=== PATIENT | male | born 1965 | race Two or more races ===

== ENCOUNTER 2019-06-23 10:18 | Emergency (ER) | payer MEDICAID ==
[~2019-06-23] VITALS: Ht 167.6 cm; Wt 108.9 kg
[~2019-06-23 10:18] MED LIST: ALLOPOW4; LISI10TA6
[2019-06-23 11:32] LABS: Basophils # (auto) 0 uL; Basophils % (auto) 0.8 % (0.0-2.0); Eosinophils # (auto) 0.1 uL; Eosinophils % (auto) 2.4 % (0.0-7.0); Hematocrit 46.1 % (41.0-53.0); Hemoglobin 15.5 g/dL (13.5-17.5); Lymphocytes # (auto) 1.1 uL; Lymphocytes % (auto) 18.4 % (10.0-50.0); Mean Corpuscular Hemoglobin 31.6 pg (28.0-32.0); Mean Corpuscular Hgb Conc. 33.6 g/dL (32.0-36.0); Monocytes # (auto) 0.5 uL; Monocytes % (auto) 8.1 % (0.0-12.0); Neutrophils # (auto) 4.2 uL; Neutrophils % (auto) 70.3 % (37.0-80.0); Platelet Count (auto) 347 10^3/uL (140-450); Red Cell Distribution Width 14.2 % (11.8-14.3)
[2019-06-23 11:49] LABS: Albumin 3.1 g/dL (3.4-5.0); Anion Gap 6 (5-15); Blood Urea Nitrogen 29 mg/dL (7-18); Calcium 9.1 mg/dL (8.5-10.1); Carbon Dioxide 23 mmol/L (21-32); Chloride 109 mmol/L (98-107); Glucose 90 mg/dL (74-106); Potassium 4.6 mmol/L (3.5-5.1); Sodium 138 mmol/L (136-145)
[2019-06-23 11:54] LABS: Alanine Aminotransferase 20 U/L (16-61); Alkaline Phosphatase 93 U/L (45-117); Aspartate Aminotransferase 13 U/L (15-37); BUN/Creatinine Ratio 18.6; Bilirubin, Total 0.5 mg/dL (0.2-1.0); GFR African American 60 mL/min; GFR Non-African American 50 mL/min; Total Protein 8.7 g/dL (6.4-8.2)
[2019-06-23] MEDS ORDERED: KETOROLAC TROMETH 30 MG/ML 1ML VIAL IV ONE (14:00)
[2019-06-23] MEDS ORDERED: KETOROLAC TROMETH 15 mg/ml 1ML VL IV ONE (14:45)
[2019-06-23 16:00] VITALS: BP 118/79
== END 2019-06-23 17:24 | disposition home or self-care (01) ==
LOC: ER 10:18
DX: M10.062 Idiopathic gout, left knee (principal); E79.0 Hyperuricemia without signs of inflammatory arthritis and tophaceous disease; F17.210 Nicotine dependence, cigarettes, uncomplicated; F12.10 Cannabis abuse, uncomplicated; I11.0 Hypertensive heart disease with heart failure; I50.9 Heart failure, unspecified; J44.9 Chronic obstructive pulmonary disease, unspecified; Z86.73 Personal history of transient ischemic attack (TIA), and cerebral infarction without residual deficits; Z88.1 Allergy status to other antibiotic agents
CPT/HCPCS: 36415; 71046; 73562; 80053; 83880; 84484; 84550; 85025; 96374; 99284; J1885

== ENCOUNTER 2019-11-01 15:05 | Emergency (ER) | payer MEDICAID ==
[~2019-11-01] VITALS: Ht 167.6 cm; Wt 122.5 kg
[2019-11-01] MEDS ORDERED: SODIUM CHLORIDE 0.9% 1,000 ML IV ONE (15:20)
[2019-11-01] MEDS ORDERED: cefTRIAXone 1GM/50ML D5W 50 ML IV ONE (15:30)
[2019-11-01] MEDS ORDERED: ZINC SULFATE 220mg CAP or TAB PO ONE (15:30)
[2019-11-01] MEDS ORDERED: ASCORBIC ACID 500 MG TAB PO ONE (15:30)
[2019-11-01] MEDS ORDERED: AZITHROMYCIN 500MG/ 250ML 250 ML IV ONE (15:30)
[2019-11-01 16:26] LABS: Basophils # (auto) 0.1 10 ^3/uL (0-0.2); Basophils % (auto) 1.2 % (0.0-2.0); Eosinophils # (auto) 1.5 10 ^3/uL (0-0.8); Lymphocytes # (auto) 0.9 10 ^3/uL (0.4-5.4); Mean Corpuscular Hemoglobin 30.9 pg (28.0-32.0); Mean Corpuscular Hgb Conc. 32.7 g/dL (32.0-36.0); Neutrophils # (auto) 7.5 10 ^3/uL (1.6-8.6)
[2019-11-01 16:28] LABS: Eosinophils % (auto) 13.3 % (0.0-7.0); Hematocrit 38.2 % (41.0-53.0); Hemoglobin 12.5 g/dL (13.5-17.5); Mean Corpuscular Volume 94.3 fL (80.0-100.0); Monocytes # (auto) 1.1 10 ^3/uL (0-1.3); Neutrophils % (auto) 67.5 % (37.0-80.0); Nucleated Red Blood Cells % 0.1 %; Platelet Count (auto) 530 10^3/uL (140-450); Red Blood Cells 4.05 10^6/uL (4.5-5.90); Red Cell Distribution Width 15.3 % (11.8-14.3); White Blood Cell 11.2 10^3/uL (4.4-10.8)
[2019-11-01] MEDS ORDERED: ACETAMINOPHEN 500 MG TAB PO ONE (16:30)
[2019-11-01 16:43] LABS: INR 1.09 (0.9-1.15); Partial Thromboplastin Time 29.2 sec (23.64-32.05)
[2019-11-01 16:44] LABS: Albumin 2.5 g/dL (3.4-5.0); Anion Gap 6 (5-15); Blood Urea Nitrogen 19 mg/dL (7-18); Calcium 7.9 mg/dL (8.5-10.1); Carbon Dioxide 22 mmol/L (21-32); Chloride 107 mmol/L (98-107); Glucose 128 mg/dL (74-106); Potassium 3.8 mmol/L (3.5-5.1); Sodium 135 mmol/L (136-145)
[2019-11-01 16:49] LABS: Alanine Aminotransferase 29 U/L (16-61); Alkaline Phosphatase 85 U/L (45-117); Aspartate Aminotransferase 16 U/L (15-37); BUN/Creatinine Ratio 10.8; Bilirubin, Total 0.4 mg/dL (0.2-1.0); GFR African American 52 mL/min; GFR Non-African American 43 mL/min; Total Protein 7.9 g/dL (6.4-8.2)
[2019-11-01 18:35] VITALS: BP 135/65
== END 2019-11-01 18:40 | disposition home or self-care (01) ==
LOC: ER 15:05
DX: E66.01 Morbid (severe) obesity due to excess calories (principal); I11.0 Hypertensive heart disease with heart failure; I50.42 Chronic combined systolic (congestive) and diastolic (congestive) heart failure; R50.9 Fever, unspecified; F17.210 Nicotine dependence, cigarettes, uncomplicated; F12.10 Cannabis abuse, uncomplicated; J44.9 Chronic obstructive pulmonary disease, unspecified; Z86.73 Personal history of transient ischemic attack (TIA), and cerebral infarction without residual deficits; Z20.828 Contact with and (suspected) exposure to other viral communicable diseases
CPT/HCPCS: 36415; 80053; 83880; 84484; 85025; 85610; 85730; 87070; 87804; 87880; 96365; 96366; 96368; 99284; J0456; J0696; J7030; U0003

== ENCOUNTER 2020-03-11 17:19 | Emergency (ER) | payer MEDICAID ==
[~2020-03-11] VITALS: Ht 167.6 cm; Wt 108.9 kg
[~2020-03-11 17:19] MED LIST changes: +LISI-648; -LISI10TA6
[2020-03-11] MEDS ORDERED: cefTRIAXone W LIDOCAINE 1 GM IM IM ONE (17:45)
[2020-03-11] MEDS ORDERED: CLINDAMYCIN 600 MG/4 ML VL IM ONE (17:45)
[2020-03-11] MEDS ORDERED: LIDOCAINE 2% (LOCAL ANESTH.) PF 5ml SDV ONE (17:49)
[2020-03-11] MEDS ORDERED: cefTRIAXone SOD 1,000 MG VL ONE (17:50)
[2020-03-11] MEDS ORDERED: LIDOCAINE HCL 2 % INJ 2ML MPF NEB ONE (18:00)
== END 2020-03-11 18:17 | disposition home or self-care (01) ==
LOC: ER 17:19
DX: L03.116 Cellulitis of left lower limb (principal); E66.01 Morbid (severe) obesity due to excess calories; I11.0 Hypertensive heart disease with heart failure; I50.9 Heart failure, unspecified; J44.9 Chronic obstructive pulmonary disease, unspecified; F17.210 Nicotine dependence, cigarettes, uncomplicated; Z88.1 Allergy status to other antibiotic agents; Z68.38 Body mass index [BMI] 38.0-38.9, adult; Z79.899 Other long term (current) drug therapy; Z86.73 Personal history of transient ischemic attack (TIA), and cerebral infarction without residual deficits; Z59.0 Homelessness
CPT/HCPCS: 96372; 99284; J0696; J2001

== ENCOUNTER 2020-06-04 10:47 | Inpatient (IN) | payer MEDICAID ==
[~2020-06-04] VITALS: Ht 167.6 cm; Wt 128.0 kg
[2020-06-04 11:44] LABS: Basophils # (auto) 0.1 10 ^3/uL (0-0.2); Basophils % (auto) 0.6 % (0.0-2.0); Eosinophils # (auto) 0.4 10 ^3/uL (0-0.8); Eosinophils % (auto) 4.4 % (0.0-7.0); Hematocrit 39.7 % (41.0-53.0); Hemoglobin 13.3 g/dL (13.5-17.5); Lymphocytes # (auto) 1.1 10 ^3/uL (0.4-5.4); Lymphocytes % (auto) 12.6 % (10.0-50.0); Mean Corpuscular Hemoglobin 31.4 pg (28.0-32.0); Mean Corpuscular Hgb Conc. 33.5 g/dL (32.0-36.0); Mean Corpuscular Volume 93.9 fL (80.0-100.0); Monocytes # (auto) 0.5 10 ^3/uL (0-1.3); Monocytes % (auto) 5.4 % (0.0-12.0); Neutrophils # (auto) 6.9 10 ^3/uL (1.6-8.6); Platelet Count (auto) 410 10^3/uL (140-450); Red Blood Cells 4.23 10^6/uL (4.5-5.90); Red Cell Distribution Width 15.3 % (11.8-14.3)
[2020-06-04 12:03] LABS: Albumin 2.8 g/dL (3.4-5.0); Calcium 8.5 mg/dL (8.5-10.1); Potassium 4.1 mmol/L (3.5-5.1)
[2020-06-04 12:06] LABS: BUN/Creatinine Ratio 12.8; Bilirubin, Total 0.4 mg/dL (0.2-1.0); Total Protein 8.4 g/dL (6.4-8.2)
[2020-06-04 12:14] LABS: INR 0.98 (0.9-1.15); Partial Thromboplastin Time 27.3 sec (23.0-31.2)
[2020-06-04] MEDS ORDERED: cefTRIAXone 1GM/50ML D5W 50 ML IV ONE (12:30)
[2020-06-04] MEDS ORDERED: VANCOMYCIN PER PHARMACY 0 MG IV SCH (15:15)
[2020-06-04] MEDS ORDERED: NICOTINE 21MG/24 HR TOPICAL PATCH TD ONE (15:15)
[2020-06-04] MEDS ORDERED: hydrALAZINE HCL 20 MG/ML VL IV PRN (15:15)
[2020-06-04] MEDS ORDERED: LORazepam 2MG/ML-1ML VIAL IV PRN (15:15)
[2020-06-04] MEDS ORDERED: NIFE20CA PO (16:00)
[2020-06-04] MEDS: FOLIC ACID 1 MG, MULTIPLE VITAMIN 10 ML, MAGNESIUM SULF SDV 50% 8 MEQ, THIAMINE INJ 100... INJ SCH ×5 (17:20)
[2020-06-04] MEDS ORDERED: diphenhdrAMINE HCL 25 MG CAP PO PRN (17:30)
[2020-06-04] MEDS: VANCOMYCIN 1GM/250ML 250 ML IV SCH (19:09)
[2020-06-04] MEDS: ONDANSETRON HCL 4 MG/2 ML VIAL IV PRN (20:28)
[2020-06-04] MEDS: MORPHINE SULF INJ 2 MG/ML SYRINGE 1ML IV PRN (20:28)
[2020-06-04] MEDS: CARVEDILOL 3.125 MG TAB PO SCH (21:55)
[2020-06-04] MEDS ORDERED: ATORVASTATIN 20 MG TAB PO SCH (22:00)
[2020-06-04] MEDS: HYDROcodone-ACET 5/325MG TAB PO PRN (23:00)
[2020-06-05] MEDS: ONDANSETRON HCL 4 MG/2 ML VIAL IV PRN (02:47)
[2020-06-05] MEDS: MORPHINE SULF INJ 2 MG/ML SYRINGE 1ML IV PRN ×2 (02:47→14:42)
[2020-06-05] MEDS: HYDROcodone-ACET 5/325MG TAB PO PRN ×2 (05:16→12:45)
[2020-06-05 06:36] VITALS: BP 130/81
[2020-06-05 08:00] VITALS: BP 126/79
[2020-06-05] MEDS: VANCOMYCIN 1GM/250ML 250 ML IV SCH (08:51)
[2020-06-05] MEDS: cefTRIAXone 1GM/50ML D5W 50 ML IV SCH (08:52)
[2020-06-05] MEDS: NICOTINE 21MG/24 HR TOPICAL PATCH TD SCH (08:53)
[2020-06-05] MEDS: CARVEDILOL 3.125 MG TAB PO SCH ×2 (08:53→23:04)
[2020-06-05 09:28] LABS: Basophils # (auto) 0 10 ^3/uL (0-0.2); Basophils % (auto) 0.4 % (0.0-2.0); Eosinophils # (auto) 0.6 10 ^3/uL (0-0.8); Hematocrit 35.6 % (41.0-53.0); Hemoglobin 11.5 g/dL (13.5-17.5); Lymphocytes # (auto) 0.7 10 ^3/uL (0.4-5.4); Lymphocytes % (auto) 7.6 % (10.0-50.0); Mean Corpuscular Hemoglobin 30.5 pg (28.0-32.0); Mean Corpuscular Hgb Conc. 32.3 g/dL (32.0-36.0); Mean Corpuscular Volume 94.3 fL (80.0-100.0); Monocytes # (auto) 0.2 10 ^3/uL (0-1.3); Monocytes % (auto) 2.6 % (0.0-12.0); Neutrophils # (auto) 7.1 10 ^3/uL (1.6-8.6); Neutrophils % (auto) 82.4 % (37.0-80.0); Platelet Count (auto) 330 10^3/uL (140-450); Red Blood Cells 3.77 10^6/uL (4.5-5.90); Red Cell Distribution Width 15.1 % (11.8-14.3); White Blood Cell 8.6 10^3/uL (4.4-10.8)
[2020-06-05 09:35] LABS: Potassium 4.6 mmol/L (3.5-5.1)
[2020-06-05 09:40] LABS: BUN/Creatinine Ratio 11.8
[2020-06-05] MEDS ORDERED: ENOXAPARIN SOD 40 MG/0.4 ML SYRINGE SC SCH (10:00)
[2020-06-05] MEDS: FOLIC ACID 1 MG, MULTIPLE VITAMIN 10 ML, MAGNESIUM SULF SDV 50% 8 MEQ, THIAMINE INJ 100... INJ SCH ×5 (14:40)
[2020-06-05] MEDS ORDERED: DexAMETHasone SOD PHOS 10MG/1ML VIAL INJ IV ONE (14:43)
[2020-06-05] MEDS ORDERED: DEXTROSE (50%) 50ML SYRG IV PRN (14:45)
[2020-06-05] MEDS ORDERED: REMDESIVIR PER PHARMACY 0 ML IV SCH ×2 (14:45)
[2020-06-05] MEDS ORDERED: SODIUM CHLORIDE 0.9% 1,000 ML IV ONE (14:45)
[2020-06-05 15:42] VITALS: BP 122/72
[2020-06-05] MEDS: InsuLIN REG 1unit/0.01ml Soln (100units/ml) SC SCH ×2 (17:00→23:27)
[2020-06-05] MEDS ORDERED: REMDESIVIR 200 MG in NS 210ml LOADING DOSE ADULT IV ONE (17:00)
[2020-06-05] MEDS: ACCU-CHEK COMFORT CURVE STRIP VI SCH ×2 (19:41→22:00)
[2020-06-05] MEDS: ALBUTEROL SULF HFA 90MCG INH 200DOSE IN PRN (19:43)
[2020-06-05] MEDS: BUDESONIDE (INHALATION) 180 MCG IH IN SCH (19:43)
[2020-06-05] MEDS: ENOXAPARIN SOD 40 MG/0.4 ML SYRINGE SC SCH (23:05)
[2020-06-06 00:19] VITALS: BP 147/79
[2020-06-06] MEDS: VANCOMYCIN 1GM/250ML 250 ML IV SCH ×2 (01:40→17:57)
[2020-06-06 05:11] VITALS: BP 148/89
[2020-06-06 05:30] VITALS: BP 137/92
[2020-06-06 06:10] VITALS: BP 146/79
[2020-06-06 06:28] LABS: Basophils # (auto) 0 10 ^3/uL (0-0.2); Basophils % (auto) 0.1 % (0.0-2.0); Eosinophils # (auto) 0 10 ^3/uL (0-0.8); Eosinophils % (auto) 0.1 % (0.0-7.0); Hemoglobin 11.9 g/dL (13.5-17.5); Lymphocytes # (auto) 0.5 10 ^3/uL (0.4-5.4); Lymphocytes % (auto) 5.1 % (10.0-50.0); Mean Corpuscular Hgb Conc. 33.9 g/dL (32.0-36.0); Mean Corpuscular Volume 94.2 fL (80.0-100.0); Monocytes # (auto) 0.1 10 ^3/uL (0-1.3); Monocytes % (auto) 1.1 % (0.0-12.0); Neutrophils % (auto) 93.6 % (37.0-80.0); Platelet Count (auto) 385 10^3/uL (140-450); Red Blood Cells 3.72 10^6/uL (4.5-5.90); White Blood Cell 9.6 10^3/uL (4.4-10.8)
[2020-06-06 06:41] LABS: Albumin 2.2 g/dL (3.4-5.0); Anion Gap 6 (5-15); Blood Urea Nitrogen 18 mg/dL (7-18); Calcium 8.2 mg/dL (8.5-10.1); Carbon Dioxide 24 mmol/L (21-32); Chloride 105 mmol/L (98-107); Glucose 140 mg/dL (74-106); Magnesium 2.2 mg/dL (1.6-2.6); Potassium 4.7 mmol/L (3.5-5.1); Sodium 135 mmol/L (136-145)
[2020-06-06] MEDS: ACCU-CHEK COMFORT CURVE STRIP VI SCH ×4 (06:46→22:00)
[2020-06-06] MEDS: InsuLIN REG 1unit/0.01ml Soln (100units/ml) SC SCH ×4 (06:53→22:34)
[2020-06-06 07:01] LABS: Alanine Aminotransferase 20 U/L (16-61); Alkaline Phosphatase 97 U/L (45-117); Aspartate Aminotransferase 18 U/L (15-37); BUN/Creatinine Ratio 12.8; Bilirubin, Total 0.3 mg/dL (0.2-1.0); GFR African American 67 mL/min; GFR Non-African American 55 mL/min; Lactate Dehydrogenase 182 U/L (87-241); Total Protein 7.4 g/dL (6.4-8.2)
[2020-06-06 07:16] LABS: CRP High Sensitivity > 19.0 mg/dL (< 0.3)
[2020-06-06 08:00] VITALS: BP 126/78
[2020-06-06] MEDS: NICOTINE 21MG/24 HR TOPICAL PATCH TD SCH (08:47)
[2020-06-06] MEDS: CHOLECALCIFEROL (VITD3) 2,000 UNIT CAP PO SCH (08:47)
[2020-06-06] MEDS: FAMOTIDINE 20 MG TAB PO SCH (08:47)
[2020-06-06] MEDS: CARVEDILOL 3.125 MG TAB PO SCH ×3 (08:48→22:59)
[2020-06-06] MEDS: ENOXAPARIN SOD 40 MG/0.4 ML SYRINGE SC SCH ×2 (08:48→22:59)
[2020-06-06] MEDS: cefTRIAXone 1GM/50ML D5W 50 ML IV SCH (08:48)
[2020-06-06] MEDS: ASCORBIC ACID 1,000 MG TAB PO SCH (08:48)
[2020-06-06] MEDS: DexAMETHasone SOD PHOS 10MG/1ML VIAL INJ IV SCH (08:49)
[2020-06-06] MEDS: ZINC SULFATE 220mg CAP or TAB PO SCH (08:49)
[2020-06-06] MEDS: FOLIC ACID 1 MG, MULTIPLE VITAMIN 10 ML, MAGNESIUM SULF SDV 50% 8 MEQ, THIAMINE INJ 100... INJ SCH ×5 (11:47)
[2020-06-06] MEDS: REMDESIVIR 100mg 100 MG in SODIUM CHL 0.9% 230 ML IV SCH (14:58)
[2020-06-06] MEDS: BUDESONIDE (INHALATION) 180 MCG IH IN SCH ×2 (15:20→21:25)
[2020-06-06] MEDS: HYDROcodone-ACET 5/325MG TAB PO PRN (15:21)
[2020-06-06 16:00] VITALS: BP 141/82
[2020-06-06] MEDS: MORPHINE SULF INJ 2 MG/ML SYRINGE 1ML IV PRN (16:30)
[2020-06-06] MEDS ORDERED: HYDROmorphone HCL 2 MG/ML VL IV ONE (18:00)
[2020-06-06] MEDS: ALBUTEROL SULF HFA 90MCG INH 200DOSE IN PRN (21:25)
[2020-06-07] VITALS: BP 127/86
[2020-06-07] MEDS: ACCU-CHEK COMFORT CURVE STRIP VI SCH ×4 (05:53→21:48)
[2020-06-07] MEDS: InsuLIN REG 1unit/0.01ml Soln (100units/ml) SC SCH ×4 (05:53→21:48)
[2020-06-07 08:00] VITALS: BP 131/84
[2020-06-07] MEDS: BUDESONIDE (INHALATION) 180 MCG IH IN SCH ×2 (08:07→19:59)
[2020-06-07] MEDS: ALBUTEROL SULF HFA 90MCG INH 200DOSE IN PRN ×2 (08:07→19:59)
[2020-06-07 08:16] LABS: Albumin 2.2 g/dL (3.4-5.0); BUN/Creatinine Ratio 18.4; Bilirubin, Total 0.2 mg/dL (0.2-1.0); Calcium 8.3 mg/dL (8.5-10.1); Total Protein 7.1 g/dL (6.4-8.2)
[2020-06-07] MEDS: MORPHINE SULF INJ 2 MG/ML SYRINGE 1ML IV PRN ×2 (08:17→19:59)
[2020-06-07] MEDS: ZINC SULFATE 220mg CAP or TAB PO SCH (08:26)
[2020-06-07] MEDS: ASCORBIC ACID 1,000 MG TAB PO SCH (08:26)
[2020-06-07] MEDS: DexAMETHasone SOD PHOS 10MG/1ML VIAL INJ IV SCH (08:26)
[2020-06-07] MEDS: FAMOTIDINE 20 MG TAB PO SCH (08:26)
[2020-06-07] MEDS: cefTRIAXone 1GM/50ML D5W 50 ML IV SCH (08:26)
[2020-06-07] MEDS: ENOXAPARIN SOD 40 MG/0.4 ML SYRINGE SC SCH ×2 (08:27→21:47)
[2020-06-07] MEDS: CHOLECALCIFEROL (VITD3) 2,000 UNIT CAP PO SCH (08:27)
[2020-06-07] MEDS: NICOTINE 21MG/24 HR TOPICAL PATCH TD SCH (08:43)
[2020-06-07] MEDS: CARVEDILOL 3.125 MG TAB PO SCH ×2 (08:43→21:46)
[2020-06-07] MEDS: HYDROcodone-ACET 5/325MG TAB PO PRN ×3 (11:10→22:39)
[2020-06-07] MEDS: VANCOMYCIN 1GM/250ML 250 ML IV SCH (11:10)
[2020-06-07] MEDS: FOLIC ACID 1 MG, MULTIPLE VITAMIN 10 ML, MAGNESIUM SULF SDV 50% 8 MEQ, THIAMINE INJ 100... INJ SCH ×5 (12:00)
[2020-06-07 16:00] VITALS: BP 138/76
[2020-06-07] MEDS: REMDESIVIR 100mg 100 MG in SODIUM CHL 0.9% 230 ML IV SCH (16:11)
[2020-06-08 01:35] VITALS: BP 149/110
[2020-06-08] MEDS: MORPHINE SULF INJ 2 MG/ML SYRINGE 1ML IV PRN ×3 (01:37→23:52)
[2020-06-08] MEDS: VANCOMYCIN 1GM/250ML 250 ML IV SCH ×2 (01:37→17:25)
[2020-06-08] MEDS: InsuLIN REG 1unit/0.01ml Soln (100units/ml) SC SCH ×4 (06:52→21:56)
[2020-06-08] MEDS: ACCU-CHEK COMFORT CURVE STRIP VI SCH ×4 (06:52→21:55)
[2020-06-08 07:46] LABS: Basophils # (auto) 0 10 ^3/uL (0-0.2); Eosinophils # (auto) 0 10 ^3/uL (0-0.8); Eosinophils % (auto) 0.1 % (0.0-7.0); Lymphocytes # (auto) 1.3 10 ^3/uL (0.4-5.4); Monocytes # (auto) 0.6 10 ^3/uL (0-1.3)
[2020-06-08 07:48] LABS: Basophils % (auto) 0.4 % (0.0-2.0); Hematocrit 37.5 % (41.0-53.0); Hemoglobin 12.7 g/dL (13.5-17.5); Lymphocytes % (auto) 14.6 % (10.0-50.0); Mean Corpuscular Hemoglobin 31.9 pg (28.0-32.0); Mean Corpuscular Hgb Conc. 33.9 g/dL (32.0-36.0); Mean Corpuscular Volume 94.2 fL (80.0-100.0); Monocytes % (auto) 6.1 % (0.0-12.0); Neutrophils # (auto) 7.2 10 ^3/uL (1.6-8.6); Neutrophils % (auto) 78.8 % (37.0-80.0); Nucleated Red Blood Cells % 0.1 %; Red Blood Cells 3.98 10^6/uL (4.5-5.90); Red Cell Distribution Width 15.2 % (11.8-14.3); White Blood Cell 9.1 10^3/uL (4.4-10.8)
[2020-06-08 08:00] VITALS: BP 120/80
[2020-06-08 08:02] LABS: Potassium 4.6 mmol/L (3.5-5.1)
[2020-06-08 08:09] LABS: Albumin 2.4 g/dL (3.4-5.0); BUN/Creatinine Ratio 22.1; Bilirubin, Total 0.2 mg/dL (0.2-1.0); Calcium 8.6 mg/dL (8.5-10.1); Total Protein 7.5 g/dL (6.4-8.2)
[2020-06-08 08:11] LABS: Platelet Count (auto) 481 10^3/uL (140-450)
[2020-06-08] MEDS: CARVEDILOL 3.125 MG TAB PO SCH ×2 (08:32→21:55)
[2020-06-08] MEDS: ZINC SULFATE 220mg CAP or TAB PO SCH (08:32)
[2020-06-08] MEDS: DexAMETHasone SOD PHOS 10MG/1ML VIAL INJ IV SCH (08:32)
[2020-06-08] MEDS: ENOXAPARIN SOD 40 MG/0.4 ML SYRINGE SC SCH ×2 (08:33→21:55)
[2020-06-08] MEDS: CHOLECALCIFEROL (VITD3) 2,000 UNIT CAP PO SCH (08:33)
[2020-06-08] MEDS: NICOTINE 21MG/24 HR TOPICAL PATCH TD SCH (08:33)
[2020-06-08] MEDS: HYDROcodone-ACET 5/325MG TAB PO PRN ×2 (08:34→21:30)
[2020-06-08] MEDS: FAMOTIDINE 20 MG TAB PO SCH (08:34)
[2020-06-08] MEDS: cefTRIAXone 1GM/50ML D5W 50 ML IV SCH (08:35)
[2020-06-08] MEDS: ASCORBIC ACID 1,000 MG TAB PO SCH (08:35)
[2020-06-08] MEDS: BUDESONIDE (INHALATION) 180 MCG IH IN SCH ×2 (10:00→19:06)
[2020-06-08] MEDS: FOLIC ACID 1 MG, MULTIPLE VITAMIN 10 ML, MAGNESIUM SULF SDV 50% 8 MEQ, THIAMINE INJ 100... INJ SCH ×5 (11:48)
[2020-06-08] MEDS: REMDESIVIR 100mg 100 MG in SODIUM CHL 0.9% 230 ML IV SCH (16:00)
[2020-06-08 16:16] VITALS: BP 118/73
[2020-06-08] MEDS: ALBUTEROL SULF HFA 90MCG INH 200DOSE IN PRN (19:06)
[2020-06-09] VITALS: BP 131/81
[2020-06-09] MEDS: MORPHINE SULF INJ 2 MG/ML SYRINGE 1ML IV PRN ×2 (05:00→09:05)
[2020-06-09] MEDS: InsuLIN REG 1unit/0.01ml Soln (100units/ml) SC SCH ×3 (05:53→17:00)
[2020-06-09] MEDS: ACCU-CHEK COMFORT CURVE STRIP VI SCH ×3 (05:53→17:23)
[2020-06-09] MEDS: BUDESONIDE (INHALATION) 180 MCG IH IN SCH (06:17)
[2020-06-09] MEDS: ALBUTEROL SULF HFA 90MCG INH 200DOSE IN PRN (06:17)
[2020-06-09] MEDS: HYDROcodone-ACET 5/325MG TAB PO PRN (06:42)
[2020-06-09 06:55] LABS: Basophils # (auto) 0 10 ^3/uL (0-0.2); Basophils % (auto) 0.4 % (0.0-2.0); Eosinophils # (auto) 0 10 ^3/uL (0-0.8); Eosinophils % (auto) 0.1 % (0.0-7.0); Hematocrit 36.3 % (41.0-53.0); Hemoglobin 12.4 g/dL (13.5-17.5); Lymphocytes # (auto) 1.4 10 ^3/uL (0.4-5.4); Lymphocytes % (auto) 16.2 % (10.0-50.0); Mean Corpuscular Hemoglobin 32.6 pg (28.0-32.0); Mean Corpuscular Hgb Conc. 34.2 g/dL (32.0-36.0); Mean Corpuscular Volume 95.4 fL (80.0-100.0); Monocytes % (auto) 12.2 % (0.0-12.0); Neutrophils # (auto) 5.9 10 ^3/uL (1.6-8.6); Neutrophils % (auto) 71.1 % (37.0-80.0); Nucleated Red Blood Cells % 0.1 %; Platelet Count (auto) 448 10^3/uL (140-450); Red Blood Cells 3.81 10^6/uL (4.5-5.90); Red Cell Distribution Width 15.7 % (11.8-14.3); White Blood Cell 8.4 10^3/uL (4.4-10.8)
[2020-06-09 07:18] LABS: Potassium 4.5 mmol/L (3.5-5.1)
[2020-06-09 07:34] LABS: Albumin 2.3 g/dL (3.4-5.0); BUN/Creatinine Ratio 21.5; Bilirubin, Total 0.2 mg/dL (0.2-1.0); Calcium 8.1 mg/dL (8.5-10.1); Total Protein 7.1 g/dL (6.4-8.2)
[2020-06-09 08:00] VITALS: BP 136/93
[2020-06-09] MEDS: VANCOMYCIN 1GM/250ML 250 ML IV SCH (08:37)
[2020-06-09] MEDS: ZINC SULFATE 220mg CAP or TAB PO SCH (08:37)
[2020-06-09] MEDS: cefTRIAXone 1GM/50ML D5W 50 ML IV SCH (08:37)
[2020-06-09] MEDS: DexAMETHasone SOD PHOS 10MG/1ML VIAL INJ IV SCH (08:37)
[2020-06-09] MEDS: FAMOTIDINE 20 MG TAB PO SCH (08:38)
[2020-06-09] MEDS: CARVEDILOL 3.125 MG TAB PO SCH (08:38)
[2020-06-09] MEDS: ASCORBIC ACID 1,000 MG TAB PO SCH (08:38)
[2020-06-09] MEDS: CHOLECALCIFEROL (VITD3) 2,000 UNIT CAP PO SCH (08:39)
[2020-06-09] MEDS: ENOXAPARIN SOD 40 MG/0.4 ML SYRINGE SC SCH (08:39)
[2020-06-09] MEDS: NICOTINE 21MG/24 HR TOPICAL PATCH TD SCH (10:00)
[2020-06-09] MEDS: FOLIC ACID 1 MG, MULTIPLE VITAMIN 10 ML, MAGNESIUM SULF SDV 50% 8 MEQ, THIAMINE INJ 100... INJ SCH ×5 (12:00)
[2020-06-09] MEDS ORDERED: ERGOCALCIFEROL 50,000 UNIT(1.25MG) CAP PO ONE (13:00)
[2020-06-09] MEDS ORDERED: SACC250C PO (13:02)
[2020-06-09] MEDS ORDERED: FAMO20TA10 PO (13:02)
[2020-06-09] MEDS ORDERED: CHOL1CAP47 PO (13:02)
[2020-06-09] MEDS ORDERED: ASPI-378 PO (13:02)
[2020-06-09] MEDS ORDERED: METH4PAK PO (13:02)
[2020-06-09] MEDS ORDERED: ALBUAER3 IN (13:02)
[2020-06-09] MEDS ORDERED: LEVO500T21 PO (13:02)
[2020-06-09] MEDS ORDERED: MULT-351 PO (13:02)
[2020-06-09] MEDS ORDERED: NIC21P TOP (13:02)
[2020-06-09] MEDS ORDERED: ASCO10003 PO (13:02)
[2020-06-09] MEDS ORDERED: ZINC220T6 PO (13:02)
[2020-06-09] MEDS ORDERED: NIFE20CA PO (13:03)
[2020-06-09] MEDS: REMDESIVIR 100mg 100 MG in SODIUM CHL 0.9% 230 ML IV SCH (15:00)
== END 2020-06-09 18:05 | disposition home or self-care (01) | DRG 383 ==
LOC: ER 10:47 → OVERFLOW 10:48 → WEST WING 06-05 03:51
PROVIDERS: ADMIT Nurse Practitioner Acute Care; ATTEND Internal Medicine
PROC: XW033E5 Introduction of Remdesivir Anti-infective into Peripheral Vein, Percutaneous Approach, New Technology Group 5 (ICD-10-PCS; 2020-06-05)
PROC: XW13325 Transfusion of Convalescent Plasma (Nonautologous) into Peripheral Vein, Percutaneous Approach, New Technology Group 5 (ICD-10-PCS; principal; 2020-06-06)
DX: L03.116 Cellulitis of left lower limb (principal); U07.1 COVID-19; L03.115 Cellulitis of right lower limb; N17.0 Acute kidney failure with tubular necrosis; E66.01 Morbid (severe) obesity due to excess calories; E78.5 Hyperlipidemia, unspecified; G47.33 Obstructive sleep apnea (adult) (pediatric); M10.9 Gout, unspecified; I13.0 Hypertensive heart and chronic kidney disease with heart failure and stage 1 through stage 4 chronic kidney disease, or unspecified chronic kidney disease; N18.9 Chronic kidney disease, unspecified; B95.61 Methicillin susceptible Staphylococcus aureus infection as the cause of diseases classified elsewhere; E55.9 Vitamin D deficiency, unspecified; J12.82 Pneumonia due to coronavirus disease 2019; J44.0 Chronic obstructive pulmonary disease with (acute) lower respiratory infection; F17.210 Nicotine dependence, cigarettes, uncomplicated; F10.10 Alcohol abuse, uncomplicated; I50.42 Chronic combined systolic (congestive) and diastolic (congestive) heart failure; Z82.49 Family history of ischemic heart disease and other diseases of the circulatory system; Z91.19 Patient's noncompliance with other medical treatment and regimen; Z59.0 Homelessness; Z68.41 Body mass index [BMI] 40.0-44.9, adult; Z86.73 Personal history of transient ischemic attack (TIA), and cerebral infarction without residual deficits; Z79.899 Other long term (current) drug therapy; Z71.6 Tobacco abuse counseling; I87.2 Venous insufficiency (chronic) (peripheral)
CPT/HCPCS: 36415; 71045; 71250; 80048; 80053; 80061; 80202; 82306; 82728; 82962; 83036; 83605; 83615; 83735; 83880; 84443; 85025; 85379; 85610; 85730; 86141; 86850; 86900; 86901; 87040; 87077; 87186; 87205; 93306; 93926; 93970; 94640; G0378; J0696; J1100; J1815; J2405

== ENCOUNTER 2020-08-21 01:42 | Inpatient (IN) | payer MEDICAID ==
[~2020-08-21] VITALS: Ht 167.6 cm; Wt 119.5 kg
[~2020-08-21 01:42] MED LIST changes: +ALBUAER3 IN; -ALLOPOW4; +ASCO10003 PO; +ASPI-378 PO; +CHOL1CAP47 PO; +FAMO20TA10 PO; +LEVO500T31 PO; -LISI-648; +METH4PAK PO; +MULT-351 PO; +NIC21P TOP; +NIFE20CA PO; +SACC250C PO; +ZINC220T6 PO
[2020-08-21 02:27] LABS: Basophils # (auto) 0.2 10 ^3/uL (0-0.2); Basophils % (auto) 2.7 % (0.0-2.0); Eosinophils # (auto) 0.3 10 ^3/uL (0-0.8); Eosinophils % (auto) 4.7 % (0.0-7.0); Hematocrit 42.1 % (41.0-53.0); Hemoglobin 14.1 g/dL (13.5-17.5); Lymphocytes # (auto) 1.2 10 ^3/uL (0.4-5.4); Lymphocytes % (auto) 18.3 % (10.0-50.0); Mean Corpuscular Hemoglobin 31.8 pg (28.0-32.0); Mean Corpuscular Hgb Conc. 33.4 g/dL (32.0-36.0); Mean Corpuscular Volume 95.1 fL (80.0-100.0); Monocytes % (auto) 14.1 % (0.0-12.0); Neutrophils # (auto) 4.1 10 ^3/uL (1.6-8.6); Neutrophils % (auto) 60.2 % (37.0-80.0); Nucleated Red Blood Cells % 0.1 %; Platelet Count (auto) 431 10^3/uL (140-450); Red Blood Cells 4.43 10^6/uL (4.5-5.90); Red Cell Distribution Width 15.1 % (11.8-14.3); White Blood Cell 6.7 10^3/uL (4.4-10.8)
[2020-08-21] MEDS ORDERED: PIPERACILLIN-TAZOB 3.375GM 100 ML IV ONE (02:30)
[2020-08-21 02:44] LABS: INR 1.03 (0.9-1.15)
[2020-08-21 02:53] LABS: Albumin 2.6 g/dL (3.4-5.0); Calcium 7.9 mg/dL (8.5-10.1); Potassium 3.6 mmol/L (3.5-5.1)
[2020-08-21 02:56] LABS: BUN/Creatinine Ratio 11.9
[2020-08-21 02:58] LABS: Lactic Acid w/Reflex 2.1 mmol/L (0.4-2.0)
[2020-08-21 02:59] LABS: Bilirubin, Total 0.4 mg/dL (0.2-1.0); Total Protein 8.1 g/dL (6.4-8.2)
[2020-08-21] MEDS ORDERED: MORPHINE SULFATE 4 MG/ML SYR/VIAL IV ONE (03:45)
[2020-08-21] MEDS ORDERED: ONDANSETRON HCL 4 MG/2 ML VIAL IV ONE (03:45)
[2020-08-21] MEDS ORDERED: VANCOMYCIN PER PHARMACY 0 MG IV SCH (06:00)
[2020-08-21] MEDS ORDERED: IOHEXOL 350 MG/ML 100ML IJ ONE (06:13)
[2020-08-21] MEDS ORDERED: ACETAMINOPHEN 325 MG TAB PO PRN (07:15)
[2020-08-21] MEDS ORDERED: ONDANSETRON HCL 4 MG/2 ML VIAL IV PRN (07:15)
[2020-08-21] MEDS: HYDROcodone-ACET 5/325MG TAB PO PRN (07:55)
[2020-08-21] MEDS ORDERED: VANCOMYCIN 1GM/250ML 250 ML IV ONE (08:00)
[2020-08-21] MEDS ORDERED: cefTRIAXone 1GM/50ML D5W 50 ML IV SCH (09:00)
[2020-08-21 09:14] LABS: Urine WBC None Seen /hpf (0 - 3)
[2020-08-21 09:22] LABS: Urine Bacteria NONE SEEN /hpf (None Seen); Urine Blood Negative /uL (Negative); Urine Specific Gravity 1.022 (1.001-1.035)
[2020-08-21] MEDS: FAMOTIDINE 20 MG TAB PO SCH ×2 (09:34→21:55)
[2020-08-21] MEDS: CARVEDILOL 3.125 MG TAB PO SCH ×2 (09:34→21:54)
[2020-08-21] MEDS: ENOXAPARIN SOD 40 MG/0.4 ML SYRINGE SC SCH (09:35)
[2020-08-21] MEDS ORDERED: FUROSEMIDE 40 MG TAB PO SCH (10:00)
[2020-08-21 11:30] VITALS: BP 109/66
[2020-08-21 13:00] VITALS: BP 109/66
[2020-08-21] MEDS: CLINDAMYCIN 600MG IV 50 ML IV SCH ×2 (15:13→21:55)
[2020-08-21 17:00] VITALS: BP 107/67
[2020-08-21] MEDS ORDERED: VANCOMYCIN 1GM/250ML 250 ML IV SCH (20:00)
[2020-08-21 22:00] VITALS: BP 91/63
[2020-08-21 22:05] VITALS: BP 100/63
[2020-08-22] VITALS (7 sets, daily range): BP systolic 91–120; BP diastolic 56–77
[2020-08-22] MEDS: CLINDAMYCIN 600MG IV 50 ML IV SCH ×3 (05:08→21:29)
[2020-08-22 05:36] LABS: Basophils # (auto) 0.1 10 ^3/uL (0-0.2); Basophils % (auto) 0.7 % (0.0-2.0); Eosinophils # (auto) 0.4 10 ^3/uL (0-0.8); Eosinophils % (auto) 5.8 % (0.0-7.0); Hematocrit 35.6 % (41.0-53.0); Hemoglobin 11.8 g/dL (13.5-17.5); Lymphocytes # (auto) 0.7 10 ^3/uL (0.4-5.4); Lymphocytes % (auto) 9.4 % (10.0-50.0); Mean Corpuscular Hemoglobin 31.7 pg (28.0-32.0); Mean Corpuscular Hgb Conc. 33.2 g/dL (32.0-36.0); Mean Corpuscular Volume 95.6 fL (80.0-100.0); Monocytes # (auto) 0.4 10 ^3/uL (0-1.3); Monocytes % (auto) 5.9 % (0.0-12.0); Neutrophils # (auto) 5.9 10 ^3/uL (1.6-8.6); Neutrophils % (auto) 78.2 % (37.0-80.0); Platelet Count (auto) 323 10^3/uL (140-450); Red Blood Cells 3.73 10^6/uL (4.5-5.90); White Blood Cell 7.5 10^3/uL (4.4-10.8)
[2020-08-22 05:58] LABS: Potassium 3.9 mmol/L (3.5-5.1)
[2020-08-22 06:07] LABS: BUN/Creatinine Ratio 13.4; Calcium 7.6 mg/dL (8.5-10.1)
[2020-08-22] MEDS ORDERED: levoFLOXacin 750MG 150 ML IV SCH (10:00)
[2020-08-22] MEDS ORDERED: FUROSEMIDE 40 MG/4 ML VIAL IV SCH (10:00)
[2020-08-22] MEDS: FAMOTIDINE 20 MG TAB PO SCH ×2 (10:56→21:29)
[2020-08-22] MEDS: CARVEDILOL 3.125 MG TAB PO SCH (10:58)
[2020-08-22] MEDS: ENOXAPARIN SOD 40 MG/0.4 ML SYRINGE SC SCH (10:58)
[2020-08-22] MEDS: HYDROcodone-ACET 5/325MG TAB PO PRN ×3 (12:41→23:34)
[2020-08-22] MEDS: SILVER SULFADIAZINE 1 % TOPICAL CREAM 50GM TOP SCH (21:30)
[2020-08-23] MEDS: HYDROcodone-ACET 5/325MG TAB PO PRN ×2 (03:34→11:14)
[2020-08-23 05:00] VITALS: BP 96/50
[2020-08-23] MEDS: CLINDAMYCIN 600MG IV 50 ML IV SCH ×3 (05:54→21:06)
[2020-08-23 09:00] VITALS: BP 119/66
[2020-08-23] MEDS: FAMOTIDINE 20 MG TAB PO SCH ×2 (10:26→21:06)
[2020-08-23] MEDS: ENOXAPARIN SOD 40 MG/0.4 ML SYRINGE SC SCH (10:26)
[2020-08-23] MEDS: SILVER SULFADIAZINE 1 % TOPICAL CREAM 50GM TOP SCH ×2 (10:26→21:06)
[2020-08-23 13:00] VITALS: BP 155/88
[2020-08-23] MEDS: CEPHALEXIN 250 MG CAP PO SCH ×3 (14:25→23:20)
[2020-08-23 16:50] VITALS: BP 134/76
[2020-08-23] MEDS: MORPHINE SULF INJ 2 MG/ML SYRINGE 1ML IV PRN (20:09)
[2020-08-23 22:00] VITALS: BP 121/80
[2020-08-24 05:00] VITALS: BP 141/86
[2020-08-24] MEDS: CLINDAMYCIN 600MG IV 50 ML IV SCH ×3 (05:16→21:48)
[2020-08-24] MEDS: CEPHALEXIN 250 MG CAP PO SCH ×2 (05:17→12:19)
[2020-08-24] MEDS: MORPHINE SULF INJ 2 MG/ML SYRINGE 1ML IV PRN ×3 (05:17→20:29)
[2020-08-24 07:25] LABS: Basophils # (auto) 0 10 ^3/uL (0-0.2); Basophils % (auto) 0.6 % (0.0-2.0); Eosinophils # (auto) 0.5 10 ^3/uL (0-0.8); Eosinophils % (auto) 7.2 % (0.0-7.0); Hematocrit 34.9 % (41.0-53.0); Hemoglobin 11.9 g/dL (13.5-17.5); Lymphocytes # (auto) 0.6 10 ^3/uL (0.4-5.4); Lymphocytes % (auto) 9.5 % (10.0-50.0); Mean Corpuscular Hemoglobin 32.6 pg (28.0-32.0); Mean Corpuscular Hgb Conc. 34.1 g/dL (32.0-36.0); Mean Corpuscular Volume 95.5 fL (80.0-100.0); Monocytes # (auto) 0.6 10 ^3/uL (0-1.3); Monocytes % (auto) 9.3 % (0.0-12.0); Neutrophils # (auto) 4.8 10 ^3/uL (1.6-8.6); Neutrophils % (auto) 73.4 % (37.0-80.0); Nucleated Red Blood Cells % 0.1 %; Platelet Count (auto) 335 10^3/uL (140-450); Red Blood Cells 3.66 10^6/uL (4.5-5.90); Red Cell Distribution Width 14.8 % (11.8-14.3); White Blood Cell 6.5 10^3/uL (4.4-10.8)
[2020-08-24 07:48] LABS: Calcium 7.9 mg/dL (8.5-10.1); Potassium 4.1 mmol/L (3.5-5.1)
[2020-08-24 07:51] LABS: BUN/Creatinine Ratio 13.2; Bilirubin, Total 0.2 mg/dL (0.2-1.0); Total Protein 6.4 g/dL (6.4-8.2)
[2020-08-24 09:00] VITALS: BP 131/76
[2020-08-24] MEDS: FAMOTIDINE 20 MG TAB PO SCH ×2 (09:23→21:48)
[2020-08-24] MEDS: SILVER SULFADIAZINE 1 % TOPICAL CREAM 50GM TOP SCH ×2 (09:23→21:48)
[2020-08-24] MEDS: HYDROcodone-ACET 5/325MG TAB PO PRN (09:23)
[2020-08-24] MEDS: ENOXAPARIN SOD 40 MG/0.4 ML SYRINGE SC SCH (09:24)
[2020-08-24 12:03] VITALS: BP 130/87
[2020-08-24] MEDS ORDERED: CLINDAMYCIN 600MG IV 50 ML IV SCH (14:00)
[2020-08-24 16:37] VITALS: BP 130/87
[2020-08-24 16:38] VITALS: BP 144/85
[2020-08-24 22:00] VITALS: BP 137/82
[2020-08-25] MEDS: CEPHALEXIN 250 MG CAP PO SCH ×3 (01:15→11:34)
[2020-08-25 05:00] VITALS: BP 153/85
[2020-08-25] MEDS: CLINDAMYCIN 600MG IV 50 ML IV SCH ×2 (05:23→14:00)
[2020-08-25 05:50] LABS: Basophils # (auto) 0 10 ^3/uL (0-0.2); Basophils % (auto) 0.8 % (0.0-2.0); Eosinophils # (auto) 0.4 10 ^3/uL (0-0.8); Eosinophils % (auto) 6.4 % (0.0-7.0); Hematocrit 36.7 % (41.0-53.0); Hemoglobin 12.5 g/dL (13.5-17.5); Lymphocytes # (auto) 0.6 10 ^3/uL (0.4-5.4); Lymphocytes % (auto) 11.6 % (10.0-50.0); Mean Corpuscular Hemoglobin 32.3 pg (28.0-32.0); Mean Corpuscular Hgb Conc. 34.1 g/dL (32.0-36.0); Mean Corpuscular Volume 94.7 fL (80.0-100.0); Monocytes # (auto) 0.6 10 ^3/uL (0-1.3); Monocytes % (auto) 11.2 % (0.0-12.0); Neutrophils # (auto) 3.9 10 ^3/uL (1.6-8.6); Platelet Count (auto) 362 10^3/uL (140-450); Red Blood Cells 3.87 10^6/uL (4.5-5.90); Red Cell Distribution Width 14.9 % (11.8-14.3); White Blood Cell 5.6 10^3/uL (4.4-10.8)
[2020-08-25 06:04] LABS: Albumin 2.1 g/dL (3.4-5.0); Calcium 7.9 mg/dL (8.5-10.1); Potassium 4.3 mmol/L (3.5-5.1)
[2020-08-25 06:07] LABS: BUN/Creatinine Ratio 10.7; Bilirubin, Total 0.3 mg/dL (0.2-1.0); Total Protein 6.5 g/dL (6.4-8.2)
[2020-08-25 08:52] VITALS: BP 138/90
[2020-08-25] MEDS: FAMOTIDINE 20 MG TAB PO SCH ×2 (10:00→22:43)
[2020-08-25] MEDS: ENOXAPARIN SOD 40 MG/0.4 ML SYRINGE SC SCH (10:00)
[2020-08-25] MEDS: SILVER SULFADIAZINE 1 % TOPICAL CREAM 50GM TOP SCH ×2 (10:00→22:44)
[2020-08-25 12:30] VITALS: BP 139/94
[2020-08-25] MEDS ORDERED: VANCOMYCIN PER PHARMACY 0 MG IV SCH (12:45)
[2020-08-25] MEDS ORDERED: VANCOMYCIN 1GM/250ML 250 ML IV ONE (13:00)
[2020-08-25] MEDS: MORPHINE SULF INJ 2 MG/ML SYRINGE 1ML IV PRN (14:56)
[2020-08-25 16:38] VITALS: BP 149/68
[2020-08-25] MEDS: VANCOMYCIN 1GM/250ML 250 ML IV SCH (16:47)
[2020-08-25 20:00] VITALS: BP 107/58
[2020-08-25 22:00] VITALS: BP_SYST 145; BP_SYST 167; BP_DIAS 106; BP_DIAS 81
[2020-08-25] MEDS: TEMAZEPAM 15 MG CAP PO PRN (22:42)
[2020-08-25] MEDS: CIPROFLOXACIN HCL 500 MG TAB PO SCH (22:43)
[2020-08-26] MEDS: HYDROcodone-ACET 5/325MG TAB PO PRN ×3 (04:49→20:55)
[2020-08-26 05:00] VITALS: BP 138/72
[2020-08-26] MEDS: VANCOMYCIN 1GM/250ML 250 ML IV SCH (08:15)
[2020-08-26 09:00] VITALS: BP 134/92
[2020-08-26] MEDS: CIPROFLOXACIN HCL 500 MG TAB PO SCH ×2 (09:37→20:58)
[2020-08-26] MEDS: FAMOTIDINE 20 MG TAB PO SCH ×2 (09:37→20:59)
[2020-08-26] MEDS: ENOXAPARIN SOD 40 MG/0.4 ML SYRINGE SC SCH (09:38)
[2020-08-26 09:54] LABS: Basophils # (auto) 0.1 10 ^3/uL (0-0.2); Eosinophils # (auto) 0.3 10 ^3/uL (0-0.8); Hematocrit 37.7 % (41.0-53.0); Hemoglobin 12.7 g/dL (13.5-17.5); Lymphocytes # (auto) 0.7 10 ^3/uL (0.4-5.4); Lymphocytes % (auto) 11.4 % (10.0-50.0); Mean Corpuscular Hemoglobin 31.4 pg (28.0-32.0); Mean Corpuscular Hgb Conc. 33.5 g/dL (32.0-36.0); Mean Corpuscular Volume 93.6 fL (80.0-100.0); Monocytes # (auto) 0.7 10 ^3/uL (0-1.3); Monocytes % (auto) 11.8 % (0.0-12.0); Neutrophils # (auto) 4.4 10 ^3/uL (1.6-8.6); Neutrophils % (auto) 70.8 % (37.0-80.0); Nucleated Red Blood Cells % 0.1 %; Platelet Count (auto) 387 10^3/uL (140-450); Red Blood Cells 4.03 10^6/uL (4.5-5.90); Red Cell Distribution Width 14.6 % (11.8-14.3); White Blood Cell 6.2 10^3/uL (4.4-10.8)
[2020-08-26 10:07] LABS: Potassium 4.1 mmol/L (3.5-5.1)
[2020-08-26 10:14] LABS: BUN/Creatinine Ratio 10.3; Calcium 8.2 mg/dL (8.5-10.1)
[2020-08-26 13:00] VITALS: BP 155/103
[2020-08-26 17:00] VITALS: BP_SYST 142; BP_SYST 165; BP_DIAS 102; BP_DIAS 75
[2020-08-26 22:00] VITALS: BP 128/78
[2020-08-27] MEDS: VANCOMYCIN 1GM/250ML 250 ML IV SCH ×2 (00:16→15:54)
[2020-08-27] MEDS: HYDROcodone-ACET 5/325MG TAB PO PRN ×3 (04:32→21:31)
[2020-08-27 05:00] VITALS: BP 115/82
[2020-08-27 07:08] LABS: Basophils # (auto) 0.1 10 ^3/uL (0-0.2); Eosinophils # (auto) 0.4 10 ^3/uL (0-0.8); Eosinophils % (auto) 5.9 % (0.0-7.0); Hematocrit 39.1 % (41.0-53.0); Lymphocytes # (auto) 0.7 10 ^3/uL (0.4-5.4); Lymphocytes % (auto) 11.4 % (10.0-50.0); Mean Corpuscular Hemoglobin 31.5 pg (28.0-32.0); Mean Corpuscular Hgb Conc. 33.3 g/dL (32.0-36.0); Mean Corpuscular Volume 94.4 fL (80.0-100.0); Monocytes # (auto) 0.9 10 ^3/uL (0-1.3); Monocytes % (auto) 14.2 % (0.0-12.0); Neutrophils # (auto) 4.1 10 ^3/uL (1.6-8.6); Neutrophils % (auto) 67.5 % (37.0-80.0); Nucleated Red Blood Cells % 0.1 %; Platelet Count (auto) 407 10^3/uL (140-450); Red Blood Cells 4.14 10^6/uL (4.5-5.90); Red Cell Distribution Width 14.9 % (11.8-14.3); White Blood Cell 6.1 10^3/uL (4.4-10.8)
[2020-08-27 07:37] LABS: BUN/Creatinine Ratio 10.3
[2020-08-27 08:56] VITALS: BP 136/89
[2020-08-27] MEDS: ENOXAPARIN SOD 40 MG/0.4 ML SYRINGE SC SCH (10:13)
[2020-08-27] MEDS: CIPROFLOXACIN HCL 500 MG TAB PO SCH ×2 (10:13→21:00)
[2020-08-27] MEDS: FAMOTIDINE 20 MG TAB PO SCH ×2 (10:13→21:01)
[2020-08-27 13:00] VITALS: BP 140/89
[2020-08-27 16:50] VITALS: BP 122/74
[2020-08-27] MEDS: MORPHINE SULF INJ 2 MG/ML SYRINGE 1ML IV PRN (20:27)
[2020-08-27] MEDS: TEMAZEPAM 15 MG CAP PO PRN (21:01)
[2020-08-27 22:00] VITALS: BP 137/101
[2020-08-28 05:00] VITALS: BP 112/70
[2020-08-28 07:33] LABS: Potassium 4.2 mmol/L (3.5-5.1)
[2020-08-28 07:42] LABS: BUN/Creatinine Ratio 10.5; Calcium 8.8 mg/dL (8.5-10.1)
[2020-08-28] MEDS: ENOXAPARIN SOD 40 MG/0.4 ML SYRINGE SC SCH (08:46)
[2020-08-28] MEDS: FAMOTIDINE 20 MG TAB PO SCH ×2 (08:46→21:21)
[2020-08-28] MEDS: CIPROFLOXACIN HCL 500 MG TAB PO SCH ×2 (08:46→21:21)
[2020-08-28] MEDS: HYDROcodone-ACET 5/325MG TAB PO PRN ×3 (08:47→18:50)
[2020-08-28 09:00] VITALS: BP 132/81
[2020-08-28 12:54] VITALS: BP 122/91
[2020-08-28] MEDS: MORPHINE SULF INJ 2 MG/ML SYRINGE 1ML IV PRN (13:23)
[2020-08-28] MEDS: VANCOMYCIN 1GM/250ML 250 ML IV SCH (14:29)
[2020-08-28 17:00] VITALS: BP 91/44
[2020-08-28 22:00] VITALS: BP 118/76
[2020-08-29] MEDS: HYDROcodone-ACET 5/325MG TAB PO PRN ×3 (01:26→14:06)
[2020-08-29 05:05] VITALS: BP 99/60
[2020-08-29 09:00] VITALS: BP 90/52
[2020-08-29] MEDS: ENOXAPARIN SOD 40 MG/0.4 ML SYRINGE SC SCH (09:42)
[2020-08-29] MEDS: FAMOTIDINE 20 MG TAB PO SCH ×2 (09:42→21:59)
[2020-08-29] MEDS: CIPROFLOXACIN HCL 500 MG TAB PO SCH ×2 (09:42→21:59)
[2020-08-29 13:00] VITALS: BP 121/93
[2020-08-29 17:00] VITALS: BP 109/65
[2020-08-29] MEDS: Ensure HIGH Protein Chocolate 8oz Bottle PO SCH (18:40)
[2020-08-29] MEDS: MORPHINE SULF INJ 2 MG/ML SYRINGE 1ML IV PRN (20:23)
[2020-08-29 22:22] VITALS: BP 112/68
[2020-08-30] MEDS: VANCOMYCIN 1GM/250ML 250 ML IV SCH (01:55)
[2020-08-30] MEDS: HYDROcodone-ACET 5/325MG TAB PO PRN ×4 (02:01→23:16)
[2020-08-30 05:00] VITALS: BP 132/68
[2020-08-30 05:42] LABS: Basophils # (auto) 0.1 10 ^3/uL (0-0.2); Basophils % (auto) 1.1 % (0.0-2.0); Eosinophils # (auto) 0.3 10 ^3/uL (0-0.8); Eosinophils % (auto) 5.2 % (0.0-7.0); Hematocrit 39.4 % (41.0-53.0); Hemoglobin 13.3 g/dL (13.5-17.5); Lymphocytes # (auto) 1.2 10 ^3/uL (0.4-5.4); Lymphocytes % (auto) 20.7 % (10.0-50.0); Mean Corpuscular Hemoglobin 32.1 pg (28.0-32.0); Mean Corpuscular Hgb Conc. 33.8 g/dL (32.0-36.0); Mean Corpuscular Volume 94.9 fL (80.0-100.0); Monocytes # (auto) 0.8 10 ^3/uL (0-1.3); Monocytes % (auto) 14.1 % (0.0-12.0); Neutrophils # (auto) 3.4 10 ^3/uL (1.6-8.6); Neutrophils % (auto) 58.9 % (37.0-80.0); Platelet Count (auto) 434 10^3/uL (140-450); Red Blood Cells 4.15 10^6/uL (4.5-5.90); Red Cell Distribution Width 14.3 % (11.8-14.3); White Blood Cell 5.7 10^3/uL (4.4-10.8)
[2020-08-30 05:44] LABS: Albumin 2.4 g/dL (3.4-5.0); Calcium 8.1 mg/dL (8.5-10.1); Potassium 3.9 mmol/L (3.5-5.1)
[2020-08-30 05:47] LABS: BUN/Creatinine Ratio 9.8
[2020-08-30 05:50] LABS: Bilirubin, Total 0.3 mg/dL (0.2-1.0); Total Protein 7.1 g/dL (6.4-8.2)
[2020-08-30] MEDS: Ensure HIGH Protein Chocolate 8oz Bottle PO SCH ×3 (08:00→18:44)
[2020-08-30 08:51] VITALS: BP 130/70
[2020-08-30] MEDS: CIPROFLOXACIN HCL 500 MG TAB PO SCH ×2 (09:50→21:09)
[2020-08-30] MEDS: ENOXAPARIN SOD 40 MG/0.4 ML SYRINGE SC SCH (09:50)
[2020-08-30] MEDS: FAMOTIDINE 20 MG TAB PO SCH ×2 (09:50→21:09)
[2020-08-30 13:00] VITALS: BP 103/60
[2020-08-30 17:00] VITALS: BP 122/74
[2020-08-30] MEDS: MORPHINE SULF INJ 2 MG/ML SYRINGE 1ML IV PRN (17:09)
[2020-08-30 22:00] VITALS: BP 104/63
[2020-08-31] MEDS: MORPHINE SULF INJ 2 MG/ML SYRINGE 1ML IV PRN (03:56)
[2020-08-31 05:21] VITALS: BP 107/71
[2020-08-31 06:22] LABS: Basophils # (auto) 0.1 10 ^3/uL (0-0.2); Basophils % (auto) 1.3 % (0.0-2.0); Eosinophils # (auto) 0.3 10 ^3/uL (0-0.8); Eosinophils % (auto) 4.2 % (0.0-7.0); Hematocrit 39.9 % (41.0-53.0); Hemoglobin 13.7 g/dL (13.5-17.5); Lymphocytes # (auto) 1.3 10 ^3/uL (0.4-5.4); Lymphocytes % (auto) 19.7 % (10.0-50.0); Mean Corpuscular Hemoglobin 32.4 pg (28.0-32.0); Mean Corpuscular Hgb Conc. 34.3 g/dL (32.0-36.0); Mean Corpuscular Volume 94.4 fL (80.0-100.0); Monocytes # (auto) 0.8 10 ^3/uL (0-1.3); Monocytes % (auto) 12.3 % (0.0-12.0); Neutrophils % (auto) 62.5 % (37.0-80.0); Nucleated Red Blood Cells % 0.2 %; Platelet Count (auto) 451 10^3/uL (140-450); Red Blood Cells 4.22 10^6/uL (4.5-5.90); Red Cell Distribution Width 14.8 % (11.8-14.3); White Blood Cell 6.5 10^3/uL (4.4-10.8)
[2020-08-31 06:37] LABS: BUN/Creatinine Ratio 11.2; Calcium 8.6 mg/dL (8.5-10.1); Potassium 4.3 mmol/L (3.5-5.1)
[2020-08-31] MEDS: Ensure HIGH Protein Chocolate 8oz Bottle PO SCH ×3 (08:39→18:32)
[2020-08-31] MEDS: FAMOTIDINE 20 MG TAB PO SCH ×2 (08:39→21:51)
[2020-08-31] MEDS: CIPROFLOXACIN HCL 500 MG TAB PO SCH ×2 (08:39→21:51)
[2020-08-31] MEDS: ENOXAPARIN SOD 40 MG/0.4 ML SYRINGE SC SCH (08:39)
[2020-08-31] MEDS: HYDROcodone-ACET 5/325MG TAB PO PRN ×3 (08:40→21:52)
[2020-08-31 09:00] VITALS: BP 117/67
[2020-08-31 12:52] VITALS: BP 120/84
[2020-08-31] MEDS: VANCOMYCIN 1GM/250ML 250 ML IV SCH (14:42)
[2020-08-31 17:00] VITALS: BP 112/70
[2020-08-31 22:00] VITALS: BP 147/72
[2020-09-01 05:00] VITALS: BP 135/76
[2020-09-01] MEDS: Ensure HIGH Protein Chocolate 8oz Bottle PO SCH ×3 (08:00→18:00)
[2020-09-01 08:46] LABS: Basophils # (auto) 0.1 10 ^3/uL (0-0.2); Basophils % (auto) 1.4 % (0.0-2.0); Eosinophils # (auto) 0.2 10 ^3/uL (0-0.8); Eosinophils % (auto) 3.7 % (0.0-7.0); Hematocrit 40.5 % (41.0-53.0); Hemoglobin 13.8 g/dL (13.5-17.5); Lymphocytes # (auto) 0.9 10 ^3/uL (0.4-5.4); Lymphocytes % (auto) 14.4 % (10.0-50.0); Mean Corpuscular Hemoglobin 32.2 pg (28.0-32.0); Mean Corpuscular Hgb Conc. 34.1 g/dL (32.0-36.0); Mean Corpuscular Volume 94.5 fL (80.0-100.0); Monocytes # (auto) 0.8 10 ^3/uL (0-1.3); Monocytes % (auto) 12.3 % (0.0-12.0); Neutrophils # (auto) 4.4 10 ^3/uL (1.6-8.6); Neutrophils % (auto) 68.2 % (37.0-80.0); Platelet Count (auto) 434 10^3/uL (140-450); Red Blood Cells 4.29 10^6/uL (4.5-5.90); Red Cell Distribution Width 14.7 % (11.8-14.3); White Blood Cell 6.5 10^3/uL (4.4-10.8)
[2020-09-01 09:00] VITALS: BP 120/90
[2020-09-01 09:01] LABS: Albumin 2.4 g/dL (3.4-5.0); Calcium 8.5 mg/dL (8.5-10.1); Potassium 4.3 mmol/L (3.5-5.1)
[2020-09-01 09:04] LABS: BUN/Creatinine Ratio 11.7; Bilirubin, Total 0.4 mg/dL (0.2-1.0); Total Protein 7.1 g/dL (6.4-8.2)
[2020-09-01] MEDS: ENOXAPARIN SOD 40 MG/0.4 ML SYRINGE SC SCH (09:42)
[2020-09-01] MEDS: FAMOTIDINE 20 MG TAB PO SCH ×2 (09:42→22:00)
[2020-09-01] MEDS: CIPROFLOXACIN HCL 500 MG TAB PO SCH ×2 (09:42→22:00)
[2020-09-01] MEDS: HYDROcodone-ACET 5/325MG TAB PO PRN (09:43)
[2020-09-01 13:00] VITALS: BP 146/70
[2020-09-01 17:00] VITALS: BP 112/74
[2020-09-01 20:00] VITALS: BP 124/75
[2020-09-01 22:00] VITALS: BP 124/75
[2020-09-02] MEDS: VANCOMYCIN 1GM/250ML 250 ML IV SCH (02:00)
[2020-09-02 05:00] VITALS: BP 91/56
[2020-09-02 06:42] LABS: Basophils # (auto) 0.2 10 ^3/uL (0-0.2); Basophils % (auto) 2.4 % (0.0-2.0); Eosinophils # (auto) 0.3 10 ^3/uL (0-0.8); Eosinophils % (auto) 4.3 % (0.0-7.0); Hematocrit 41.4 % (41.0-53.0); Hemoglobin 13.7 g/dL (13.5-17.5); Lymphocytes # (auto) 0.7 10 ^3/uL (0.4-5.4); Lymphocytes % (auto) 10.6 % (10.0-50.0); Mean Corpuscular Hemoglobin 31.3 pg (28.0-32.0); Mean Corpuscular Hgb Conc. 33.2 g/dL (32.0-36.0); Mean Corpuscular Volume 94.4 fL (80.0-100.0); Monocytes # (auto) 0.6 10 ^3/uL (0-1.3); Monocytes % (auto) 8.4 % (0.0-12.0); Neutrophils % (auto) 74.3 % (37.0-80.0); Nucleated Red Blood Cells % 0.1 %; Platelet Count (auto) 448 10^3/uL (140-450); Red Blood Cells 4.38 10^6/uL (4.5-5.90); Red Cell Distribution Width 14.9 % (11.8-14.3); White Blood Cell 6.7 10^3/uL (4.4-10.8)
[2020-09-02 07:01] LABS: BUN/Creatinine Ratio 10.9; Calcium 8.4 mg/dL (8.5-10.1); Potassium 4.2 mmol/L (3.5-5.1)
[2020-09-02] MEDS: Ensure HIGH Protein Chocolate 8oz Bottle PO SCH ×2 (08:00→12:00)
[2020-09-02 09:00] VITALS: BP 79/42
[2020-09-02 10:21] VITALS: BP 124/73
[2020-09-02] MEDS: FAMOTIDINE 20 MG TAB PO SCH (10:37)
[2020-09-02] MEDS: CIPROFLOXACIN HCL 500 MG TAB PO SCH (10:37)
[2020-09-02 13:00] VITALS: BP 94/50
[2020-09-02] MEDS: MORPHINE SULF INJ 2 MG/ML SYRINGE 1ML IV PRN (13:02)
[2020-09-02 16:00] VITALS: BP 122/58
[2020-09-02 17:00] VITALS: BP 124/73
== END 2020-09-02 16:40 | DRG 720 ==
LOC: ER 01:44 → OVERFLOW 01:45 → WEST WING 11:30
PROVIDERS: ADMIT Nurse Practitioner; ATTEND Internal Medicine
PROC: 05HF33Z Insertion of Infusion Device into Left Cephalic Vein, Percutaneous Approach (ICD-10-PCS; principal; 2020-09-01)
PROC: B54NZZA Ultrasonography of Left Upper Extremity Veins, Guidance (ICD-10-PCS; 2020-09-01)
DX: A41.9 Sepsis, unspecified organism (principal); N17.0 Acute kidney failure with tubular necrosis; I50.33 Acute on chronic diastolic (congestive) heart failure; E44.0 Moderate protein-calorie malnutrition; L03.115 Cellulitis of right lower limb; L03.116 Cellulitis of left lower limb; L02.415 Cutaneous abscess of right lower limb; L02.416 Cutaneous abscess of left lower limb; E66.01 Morbid (severe) obesity due to excess calories; N18.32 Chronic kidney disease, stage 3b; K76.0 Fatty (change of) liver, not elsewhere classified; I87.2 Venous insufficiency (chronic) (peripheral); F17.210 Nicotine dependence, cigarettes, uncomplicated; Z20.822 Contact with and (suspected) exposure to COVID-19; I13.0 Hypertensive heart and chronic kidney disease with heart failure and stage 1 through stage 4 chronic kidney disease, or unspecified chronic kidney disease; J44.9 Chronic obstructive pulmonary disease, unspecified; S81.802A Unspecified open wound, left lower leg, initial encounter; S81.801A Unspecified open wound, right lower leg, initial encounter; X58.XXXA Exposure to other specified factors, initial encounter; Y93.89 Activity, other specified; Z82.49 Family history of ischemic heart disease and other diseases of the circulatory system; Z83.3 Family history of diabetes mellitus; Z59.0 Homelessness; Z88.1 Allergy status to other antibiotic agents; Z68.42 Body mass index [BMI] 45.0-49.9, adult; Y92.89 Other specified places as the place of occurrence of the external cause; Y99.8 Other external cause status
CPT/HCPCS: 36415; 71275; 73700; 80048; 80053; 80202; 81001; 82565; 82728; 83605; 83880; 84443; 84484; 85025; 85379; 85610; 85730; 87040; 87077; 87081; 87186; 87205; 87426; 93306; 93970; 97163; 97530; G0378; J0696; J2405; J2543; J3490

== ENCOUNTER 2022-01-12 02:06 | Inpatient (IN) | payer MEDICAID ==
[~2022-01-12] VITALS: Ht 167.6 cm; Wt 131.7 kg
[~2022-01-12 02:06] MED LIST changes: -LEVO500T31 PO; -METH4PAK PO; -NIC21P TOP; -NIFE20CA PO; -SACC250C PO
[2022-01-12 07:47] LABS: Basophils # (auto) 0.1 10 ^3/uL (0-0.2); Basophils % (auto) 0.8 % (0.0-2.0); Eosinophils # (auto) 0.2 10 ^3/uL (0-0.8); Eosinophils % (auto) 2.4 % (0.0-7.0); Hematocrit 42.9 % (41.0-53.0); Lymphocytes # (auto) 1.1 10 ^3/uL (0.4-5.4); Lymphocytes % (auto) 12.1 % (10.0-50.0); Mean Corpuscular Hemoglobin 32.6 pg (28.0-32.0); Mean Corpuscular Hgb Conc. 32.6 g/dL (32.0-36.0); Mean Corpuscular Volume 100.1 fL (80.0-100.0); Monocytes # (auto) 1.1 10 ^3/uL (0-1.3); Monocytes % (auto) 12.3 % (0.0-12.0); Neutrophils # (auto) 6.3 10 ^3/uL (1.6-8.6); Neutrophils % (auto) 72.4 % (37.0-80.0); Nucleated Red Blood Cells % 0.1 %; Red Blood Cells 4.29 10^6/uL (4.5-5.90); Red Cell Distribution Width 15.6 % (11.8-14.3); White Blood Cell 8.8 10^3/uL (4.4-10.8)
[2022-01-12 07:58] LABS: Albumin 2.7 g/dL (3.4-5.0); Calcium 8.5 mg/dL (8.5-10.1); Potassium 3.7 mmol/L (3.5-5.1)
[2022-01-12 08:03] LABS: Total Protein 8.6 g/dL (6.4-8.2)
[2022-01-12] MEDS ORDERED: cefTRIAXone 1GM/50ML D5W 50 ML IV ONE (09:00)
[2022-01-12] MEDS ORDERED: HYDROcodone-ACET 5/325MG TAB PO ONE (09:00)
[2022-01-12] MEDS ORDERED: CLINDAMYCIN 600MG IV 50 ML IV ONE (09:30)
[2022-01-12] MEDS ORDERED: ONDANSETRON HCL 4 MG/2 ML VIAL IV PRN (12:45)
[2022-01-12] MEDS: SODIUM CHLORIDE 0.9% 1,000 ML IV SCH (12:45)
[2022-01-12] MEDS ORDERED: ACETAMINOPHEN 325 MG TAB PO PRN (12:45)
[2022-01-12] MEDS ORDERED: VANCOMYCIN PER PHARMACY 0 MG IV SCH (12:45)
[2022-01-12] MEDS ORDERED: MORPHINE SULFATE INJ 2 MG/ml SYRG IV PRN (12:45)
[2022-01-12] MEDS ORDERED: DOCUSATE SOD 100 MG CAP PO PRN (12:45)
[2022-01-12] MEDS: PIPERACILLIN-TAZOB 3.375GM 100 ML IV SCH ×2 (13:00→21:01)
[2022-01-12] MEDS: VANCOMYCIN 1GM/250ML 250 ML IV SCH (16:00)
[2022-01-12] MEDS: HYDROcodone-ACET 5/325MG TAB PO PRN ×2 (21:18→23:43)
[2022-01-12] MEDS ORDERED: ATOR10TA52 PO (22:44)
[2022-01-12 22:45] VITALS: BP 130/74
[2022-01-13] VITALS (7 sets, daily range): BP systolic 114–149; BP diastolic 66–81
[2022-01-13] MEDS: PIPERACILLIN-TAZOB 3.375GM 100 ML IV SCH ×3 (05:06→20:42)
[2022-01-13] MEDS: SODIUM CHLORIDE 0.9% 1,000 ML IV SCH (05:07)
[2022-01-13] MEDS: HYDROcodone-ACET 5/325MG TAB PO PRN ×2 (05:10→22:46)
[2022-01-13] MEDS ORDERED: PNEUMOCOCCAL VACC POLYS 25 MCG/0.5 ML VIAL IM ONE (05:30)
[2022-01-13 05:31] LABS: Basophils # (auto) 0 10 ^3/uL (0-0.2); Basophils % (auto) 0.4 % (0.0-2.0); Eosinophils # (auto) 0.3 10 ^3/uL (0-0.8); Eosinophils % (auto) 3.4 % (0.0-7.0); Hematocrit 39.8 % (41.0-53.0); Hemoglobin 13.2 g/dL (13.5-17.5); Lymphocytes # (auto) 0.7 10 ^3/uL (0.4-5.4); Lymphocytes % (auto) 8.8 % (10.0-50.0); Mean Corpuscular Hgb Conc. 33.2 g/dL (32.0-36.0); Mean Corpuscular Volume 99.5 fL (80.0-100.0); Monocytes # (auto) 0.5 10 ^3/uL (0-1.3); Monocytes % (auto) 6.1 % (0.0-12.0); Neutrophils # (auto) 6.9 10 ^3/uL (1.6-8.6); Neutrophils % (auto) 81.3 % (37.0-80.0); Red Cell Distribution Width 15.2 % (11.8-14.3); White Blood Cell 8.5 10^3/uL (4.4-10.8)
[2022-01-13 05:50] LABS: Albumin 2.1 g/dL (3.4-5.0); Calcium 7.7 mg/dL (8.5-10.1); Potassium 4.1 mmol/L (3.5-5.1)
[2022-01-13 05:55] LABS: BUN/Creatinine Ratio 10.8
[2022-01-13] MEDS: VANCOMYCIN 1GM/250ML 250 ML IV SCH (09:31)
[2022-01-13] MEDS: ENOXAPARIN SOD 40 MG/0.4 ML SYRINGE SC SCH (09:32)
[2022-01-13] MEDS: MUPIROCIN 2% OINT 15gm or 22gm FOR MRSA NARES EACHNOSTRI SCH (22:40)
[2022-01-14] MEDS: VANCOMYCIN 1GM/250ML 250 ML IV SCH ×2 (03:26→21:37)
[2022-01-14] MEDS: PIPERACILLIN-TAZOB 3.375GM 100 ML IV SCH (04:44)
[2022-01-14 05:33] VITALS: BP 137/79
[2022-01-14 08:11] VITALS: BP 134/75
[2022-01-14] MEDS: MUPIROCIN 2% OINT 15gm or 22gm FOR MRSA NARES EACHNOSTRI SCH ×2 (09:45→23:07)
[2022-01-14] MEDS: ENOXAPARIN SOD 40 MG/0.4 ML SYRINGE SC SCH (09:45)
[2022-01-14 11:28] VITALS: BP 147/87
[2022-01-14 16:53] VITALS: BP 145/86
[2022-01-14] MEDS: HYDROcodone-ACET 5/325MG TAB PO PRN (21:36)
[2022-01-14 22:00] VITALS: BP 131/81
[2022-01-15 05:30] VITALS: BP 142/81
[2022-01-15 09:00] VITALS: BP 132/93
[2022-01-15] MEDS ORDERED: cefTRIAXone 1GM/50ML D5W 50 ML IV SCH (09:00)
[2022-01-15] MEDS: ENOXAPARIN SOD 40 MG/0.4 ML SYRINGE SC SCH (11:38)
[2022-01-15] MEDS: MUPIROCIN 2% OINT 15gm or 22gm FOR MRSA NARES EACHNOSTRI SCH ×2 (11:38→22:04)
[2022-01-15 13:00] VITALS: BP 157/91
[2022-01-15] MEDS ORDERED: ATORVASTATIN 20 MG TAB PO ONE (14:30)
[2022-01-15] MEDS ORDERED: ASPirin 81 mg TAB PO ONE (14:30)
[2022-01-15] MEDS: MEROPENEM 1GM IVPB 100 ML IV SCH ×2 (15:46→21:56)
[2022-01-15 17:00] VITALS: BP 159/83
[2022-01-15] MEDS: VANCOMYCIN 1GM/250ML 250 ML IV SCH (18:31)
[2022-01-15] MEDS: ATORVASTATIN 20 MG TAB PO SCH (21:56)
[2022-01-15 23:06] VITALS: BP 141/75
[2022-01-16 04:38] VITALS: BP 136/67
[2022-01-16] MEDS: MEROPENEM 1GM IVPB 100 ML IV SCH ×3 (05:41→21:40)
[2022-01-16 09:00] VITALS: BP 147/85
[2022-01-16] MEDS: ENOXAPARIN SOD 40 MG/0.4 ML SYRINGE SC SCH (09:22)
[2022-01-16] MEDS: VANCOMYCIN 1GM/250ML 250 ML IV SCH (09:22)
[2022-01-16] MEDS: ASPirin 81 mg TAB PO SCH (09:22)
[2022-01-16] MEDS: MUPIROCIN 2% OINT 15gm or 22gm FOR MRSA NARES EACHNOSTRI SCH ×2 (10:00→21:40)
[2022-01-16 13:00] VITALS: BP 123/66
[2022-01-16 17:00] VITALS: BP 133/95
[2022-01-16] MEDS: ATORVASTATIN 20 MG TAB PO SCH (21:41)
[2022-01-16 23:29] VITALS: BP 116/74
[2022-01-17] MEDS: HYDROcodone-ACET 5/325MG TAB PO PRN ×2 (02:25→08:47)
[2022-01-17 05:11] LABS: Basophils # (auto) 0 10 ^3/uL (0-0.2); Basophils % (auto) 0.6 % (0.0-2.0); Eosinophils # (auto) 0.5 10 ^3/uL (0-0.8); Eosinophils % (auto) 6.7 % (0.0-7.0); Hematocrit 41.6 % (41.0-53.0); Hemoglobin 13.9 g/dL (13.5-17.5); Lymphocytes # (auto) 0.9 10 ^3/uL (0.4-5.4); Lymphocytes % (auto) 12.8 % (10.0-50.0); Mean Corpuscular Hemoglobin 32.9 pg (28.0-32.0); Mean Corpuscular Hgb Conc. 33.4 g/dL (32.0-36.0); Mean Corpuscular Volume 98.7 fL (80.0-100.0); Monocytes # (auto) 0.7 10 ^3/uL (0-1.3); Monocytes % (auto) 9.3 % (0.0-12.0); Neutrophils # (auto) 5.1 10 ^3/uL (1.6-8.6); Neutrophils % (auto) 70.6 % (37.0-80.0); Red Blood Cells 4.21 10^6/uL (4.5-5.90); Red Cell Distribution Width 15.7 % (11.8-14.3); White Blood Cell 7.3 10^3/uL (4.4-10.8)
[2022-01-17 05:13] VITALS: BP 127/87
[2022-01-17 05:19] LABS: Albumin 2.2 g/dL (3.4-5.0); BUN/Creatinine Ratio 15.5; Calcium 8.7 mg/dL (8.5-10.1); Phosphorus 4.1 mg/dL (2.5-4.90); Potassium 4.4 mmol/L (3.5-5.1)
[2022-01-17] MEDS: VANCOMYCIN 1GM/250ML 250 ML IV SCH (07:15)
[2022-01-17] MEDS: MEROPENEM 1GM IVPB 100 ML IV SCH ×2 (07:15→13:44)
[2022-01-17] MEDS: ENOXAPARIN SOD 40 MG/0.4 ML SYRINGE SC SCH (08:46)
[2022-01-17] MEDS: ASPirin 81 mg TAB PO SCH (08:47)
[2022-01-17 09:18] VITALS: BP 135/82
[2022-01-17] MEDS: MUPIROCIN 2% OINT 15gm or 22gm FOR MRSA NARES EACHNOSTRI SCH (10:15)
[2022-01-17 13:00] VITALS: BP 108/50
[2022-01-17 15:41] VITALS: BP 108/50
== END 2022-01-17 16:10 | disposition home or self-care (01) | DRG 383 ==
LOC: ER 02:06 → OVERFLOW 12:35 → WEST WING 22:07
PROVIDERS: ADMIT Internal Medicine; ATTEND Internal Medicine
DX: L03.116 Cellulitis of left lower limb (principal); E87.1 Hypo-osmolality and hyponatremia; N17.9 Acute kidney failure, unspecified; L03.115 Cellulitis of right lower limb; E55.9 Vitamin D deficiency, unspecified; D53.9 Nutritional anemia, unspecified; M72.9 Fibroblastic disorder, unspecified; E88.09 Other disorders of plasma-protein metabolism, not elsewhere classified; I50.9 Heart failure, unspecified; M10.9 Gout, unspecified; J44.9 Chronic obstructive pulmonary disease, unspecified; I83.93 Asymptomatic varicose veins of bilateral lower extremities; E66.01 Morbid (severe) obesity due to excess calories; Z20.822 Contact with and (suspected) exposure to COVID-19; I87.8 Other specified disorders of veins; I11.0 Hypertensive heart disease with heart failure; F17.210 Nicotine dependence, cigarettes, uncomplicated; Z59.02 Unsheltered homelessness; Z83.3 Family history of diabetes mellitus; Z79.82 Long term (current) use of aspirin; Z82.49 Family history of ischemic heart disease and other diseases of the circulatory system; Z86.73 Personal history of transient ischemic attack (TIA), and cerebral infarction without residual deficits; Z68.42 Body mass index [BMI] 45.0-49.9, adult; Z88.1 Allergy status to other antibiotic agents
CPT/HCPCS: 36415; 73700; 80048; 80053; 80069; 80202; 83880; 85025; 87040; 87077; 87081; 87147; 87186; 87205; 93925; 93970; 96361; 96365; 96366; 96367; G0378; J0696; J2185; J2405; J2543; J3490

== ENCOUNTER 2022-01-22 22:29 | Inpatient (IN) | payer MEDICAID ==
[~2022-01-22] VITALS: Ht 167.6 cm; Wt 126.0 kg
[~2022-01-22 22:29] MED LIST changes: -ASCO10003 PO; +ATOR10TA52 PO; -CHOL1CAP47 PO; -FAMO20TA10 PO; -MULT-351 PO; -ZINC220T6 PO
[2022-01-23 08:03] LABS: Albumin 2.7 g/dL (3.4-5.0); Calcium 8.9 mg/dL (8.5-10.1)
[2022-01-23 08:04] LABS: Basophils # (auto) 0.1 10 ^3/uL (0-0.2); Basophils % (auto) 0.5 % (0.0-2.0); Eosinophils # (auto) 0 10 ^3/uL (0-0.8); Eosinophils % (auto) 0.4 % (0.0-7.0); Hematocrit 44.4 % (41.0-53.0); Hemoglobin 14.8 g/dL (13.5-17.5); Lymphocytes # (auto) 1.1 10 ^3/uL (0.4-5.4); Lymphocytes % (auto) 9.6 % (10.0-50.0); Mean Corpuscular Hemoglobin 32.5 pg (28.0-32.0); Mean Corpuscular Hgb Conc. 33.2 g/dL (32.0-36.0); Mean Corpuscular Volume 97.6 fL (80.0-100.0); Monocytes # (auto) 1.2 10 ^3/uL (0-1.3); Monocytes % (auto) 10.2 % (0.0-12.0); Neutrophils # (auto) 9.4 10 ^3/uL (1.6-8.6); Neutrophils % (auto) 79.3 % (37.0-80.0); Red Blood Cells 4.55 10^6/uL (4.5-5.90); Red Cell Distribution Width 15.2 % (11.8-14.3); White Blood Cell 11.9 10^3/uL (4.4-10.8)
[2022-01-23 08:06] LABS: BUN/Creatinine Ratio 13.8; Bilirubin, Total 1.4 mg/dL (0.2-1.0); Total Protein 9.2 g/dL (6.4-8.2)
[2022-01-23] MEDS ORDERED: SODIUM CHLORIDE 0.9% 1,000 ML IV ONE (11:00)
[2022-01-23 13:52] LABS: Urine Bacteria FEW /hpf (None Seen); Urine Blood Negative /uL (Negative); Urine Mucus FEW (None Seen); Urine Specific Gravity 1.023 (1.001-1.035); Urine WBC 2 /hpf (0 - 3)
[2022-01-23] MEDS ORDERED: ONDANSETRON HCL 4 MG/2 ML VIAL IV ONE (14:30)
[2022-01-23] MEDS ORDERED: MORPHINE SULFATE INJ 2 MG/ml SYRG IV ONE (14:30)
[2022-01-23] MEDS ORDERED: cefTRIAXone 1GM/50ML D5W 50 ML IV ONE (16:00)
[2022-01-23] MEDS ORDERED: SODIUM CHLORIDE 0.9% 500 ML IV ONE (17:00)
[2022-01-23] MEDS ORDERED: VANCOMYCIN PER PHARMACY 0 MG IV SCH (17:00)
[2022-01-23] MEDS ORDERED: VANCOMYCIN 1GM/250ML 250 ML IV ONE (17:30)
[2022-01-23] MEDS: SODIUM CHLORIDE 0.9% 1,000 ML IV SCH (18:54)
[2022-01-23 19:47] LABS: Alcohol, Urine < 3.0 mg/dL (0-10)
[2022-01-23 19:56] LABS: Amphetamine Screen, Urine POSITIVE (NEGATIVE); Barbiturate Scree,Urine NEGATIVE (NEGATIVE); Benzodiazephine Screen, Urine NEGATIVE (NEGATIVE); Cannabinoid Screen, Urine NEGATIVE (NEGATIVE); Cocaine Screen, Urine NEGATIVE (NEGATIVE); Opiate Scree,Urine NEGATIVE (NEGATIVE); Phencyclidine Screen, Urine NEGATIVE (NEGATIVE)
[2022-01-23 22:00] VITALS: BP 113/69
[2022-01-23] MEDS: ATORVASTATIN 20 MG TAB PO SCH (22:00)
[2022-01-23] MEDS: CLINDAMYCIN 600MG IV 50 ML IV SCH (22:21)
[2022-01-24] MEDS: MORPHINE SULFATE INJ 2 MG/ml SYRG IV PRN ×2 (04:22→21:27)
[2022-01-24 05:11] LABS: Albumin 2.1 g/dL (3.4-5.0); Calcium 7.9 mg/dL (8.5-10.1); Potassium 4.1 mmol/L (3.5-5.1)
[2022-01-24 05:15] LABS: BUN/Creatinine Ratio 16.9; Bilirubin, Total 0.9 mg/dL (0.2-1.0); Total Protein 7.4 g/dL (6.4-8.2)
[2022-01-24 05:50] LABS: Basophils # (auto) 0.1 10 ^3/uL (0-0.2); Basophils % (auto) 0.6 % (0.0-2.0); Eosinophils # (auto) 0.3 10 ^3/uL (0-0.8); Eosinophils % (auto) 3.1 % (0.0-7.0); Hematocrit 40.6 % (41.0-53.0); Hemoglobin 13.2 g/dL (13.5-17.5); Lymphocytes # (auto) 0.8 10 ^3/uL (0.4-5.4); Lymphocytes % (auto) 9.4 % (10.0-50.0); Mean Corpuscular Hemoglobin 32.1 pg (28.0-32.0); Mean Corpuscular Hgb Conc. 32.6 g/dL (32.0-36.0); Mean Corpuscular Volume 98.5 fL (80.0-100.0); Monocytes # (auto) 0.6 10 ^3/uL (0-1.3); Monocytes % (auto) 7.3 % (0.0-12.0); Neutrophils # (auto) 7.1 10 ^3/uL (1.6-8.6); Neutrophils % (auto) 79.6 % (37.0-80.0); Red Blood Cells 4.12 10^6/uL (4.5-5.90); Red Cell Distribution Width 15.2 % (11.8-14.3); White Blood Cell 8.9 10^3/uL (4.4-10.8)
[2022-01-24] MEDS: CLINDAMYCIN 600MG IV 50 ML IV SCH ×3 (06:10→21:26)
[2022-01-24] MEDS: SODIUM CHLORIDE 0.9% 1,000 ML IV SCH ×2 (06:11→19:55)
[2022-01-24] MEDS: ENOXAPARIN SOD 40 MG/0.4 ML SYRINGE SC SCH (08:53)
[2022-01-24] MEDS: NICOTINE 7MG/24HR TOPICAL PATCH TD SCH (08:59)
[2022-01-24 09:00] VITALS: BP 145/80
[2022-01-24 13:30] VITALS: BP 112/61
[2022-01-24] MEDS ORDERED: VANCOMYCIN 1GM/250ML 250 ML IV ONE (14:00)
[2022-01-24 17:00] VITALS: BP 128/85
[2022-01-24] MEDS: ATORVASTATIN 20 MG TAB PO SCH (21:28)
[2022-01-24] MEDS: DAKINS QUARTER STR 0.125% (NaHypochlorite) 473 ML TOPICAL SOL TOP SCH (21:33)
[2022-01-24 22:00] VITALS: BP 110/67
[2022-01-25 02:03] LABS: Creatinine, Urine 151 mg/dL (30.0-125.0); Protein, Urine 46.1 mg/dL (0.0-11.9); Sodium Urine 29 mmol/L (40-220)
[2022-01-25] MEDS: SODIUM CHLORIDE 0.9% 1,000 ML IV SCH (03:50)
[2022-01-25] MEDS: CLINDAMYCIN 600MG IV 50 ML IV SCH ×3 (04:55→21:12)
[2022-01-25 05:00] VITALS: BP 102/59
[2022-01-25 09:00] VITALS: BP 123/75
[2022-01-25] MEDS: ENOXAPARIN SOD 40 MG/0.4 ML SYRINGE SC SCH (10:12)
[2022-01-25] MEDS: NICOTINE 7MG/24HR TOPICAL PATCH TD SCH (10:12)
[2022-01-25] MEDS: DAKINS QUARTER STR 0.125% (NaHypochlorite) 473 ML TOPICAL SOL TOP SCH ×2 (10:13→21:14)
[2022-01-25 12:49] LABS: Hepatitis C Antibody Negative (Negative)
[2022-01-25 13:00] VITALS: BP 110/64
[2022-01-25] MEDS ORDERED: VANCOMYCIN 1GM/250ML 250 ML IV ONE (14:15)
[2022-01-25 17:00] VITALS: BP 112/73
[2022-01-25] MEDS: ATORVASTATIN 20 MG TAB PO SCH (21:12)
[2022-01-25 22:00] VITALS: BP 118/70
[2022-01-26] MEDS: SODIUM CHLORIDE 0.9% 1,000 ML IV SCH ×3 (00:06→21:31)
[2022-01-26 05:00] VITALS: BP 103/72
[2022-01-26] MEDS: CLINDAMYCIN 600MG IV 50 ML IV SCH ×3 (05:10→21:30)
[2022-01-26 06:05] LABS: Basophils # (auto) 0.1 10 ^3/uL (0-0.2); Basophils % (auto) 1.1 % (0.0-2.0); Eosinophils # (auto) 0.5 10 ^3/uL (0-0.8); Eosinophils % (auto) 6.2 % (0.0-7.0); Hemoglobin 12.9 g/dL (13.5-17.5); Lymphocytes # (auto) 1.2 10 ^3/uL (0.4-5.4); Lymphocytes % (auto) 15.8 % (10.0-50.0); Mean Corpuscular Hemoglobin 32.6 pg (28.0-32.0); Mean Corpuscular Hgb Conc. 33.2 g/dL (32.0-36.0); Mean Corpuscular Volume 98.3 fL (80.0-100.0); Monocytes # (auto) 0.9 10 ^3/uL (0-1.3); Monocytes % (auto) 11.8 % (0.0-12.0); Neutrophils # (auto) 4.8 10 ^3/uL (1.6-8.6); Neutrophils % (auto) 65.1 % (37.0-80.0); Red Blood Cells 3.97 10^6/uL (4.5-5.90); White Blood Cell 7.3 10^3/uL (4.4-10.8)
[2022-01-26 06:28] LABS: BUN/Creatinine Ratio 15.2; Calcium 8.2 mg/dL (8.5-10.1); Potassium 4.5 mmol/L (3.5-5.1)
[2022-01-26 09:00] VITALS: BP 140/78
[2022-01-26] MEDS: ENOXAPARIN SOD 40 MG/0.4 ML SYRINGE SC SCH ×2 (09:21→21:30)
[2022-01-26] MEDS: NICOTINE 7MG/24HR TOPICAL PATCH TD SCH (09:21)
[2022-01-26] MEDS: DAKINS QUARTER STR 0.125% (NaHypochlorite) 473 ML TOPICAL SOL TOP SCH ×2 (09:22→23:09)
[2022-01-26] MEDS: ALLOPURINOL 300 MG TAB PO SCH (11:32)
[2022-01-26] MEDS ORDERED: VANCOMYCIN 1GM/250ML 250 ML IV ONE (12:00)
[2022-01-26 13:00] VITALS: BP 144/96
[2022-01-26 16:59] VITALS: BP 131/75
[2022-01-26] MEDS: ATORVASTATIN 20 MG TAB PO SCH (21:30)
[2022-01-26 22:00] VITALS: BP 150/83
[2022-01-27] MEDS: MORPHINE SULFATE INJ 2 MG/ml SYRG IV PRN ×2 (00:30→10:05)
[2022-01-27 05:00] VITALS: BP 144/91
[2022-01-27] MEDS: CLINDAMYCIN 600MG IV 50 ML IV SCH ×2 (05:23→14:48)
[2022-01-27 09:00] VITALS: BP_SYST 109; BP_SYST 145; BP_DIAS 73; BP_DIAS 83
[2022-01-27] MEDS ORDERED: ATOR20TA PO ×2 (09:27)
[2022-01-27] MEDS ORDERED: CLIN-203 PO ×2 (09:27)
[2022-01-27] MEDS ORDERED: HYDR-4902 PO ×2 (09:27)
[2022-01-27] MEDS ORDERED: ALL300T PO ×2 (09:27)
[2022-01-27] MEDS: ENOXAPARIN SOD 40 MG/0.4 ML SYRINGE SC SCH (10:03)
[2022-01-27] MEDS: ALLOPURINOL 300 MG TAB PO SCH (10:03)
[2022-01-27] MEDS: NICOTINE 7MG/24HR TOPICAL PATCH TD SCH (10:04)
[2022-01-27] MEDS: DAKINS QUARTER STR 0.125% (NaHypochlorite) 473 ML TOPICAL SOL TOP SCH (10:04)
[2022-01-27 13:00] VITALS: BP 145/83
[2022-01-27 13:35] VITALS: BP 109/73
[2022-01-27] MEDS: SODIUM CHLORIDE 0.9% 1,000 ML IV SCH (14:35)
== END 2022-01-27 16:39 | disposition home or self-care (01) | DRG 383 ==
LOC: ER 22:29 → OVERFLOW 01-23 16:50 → WEST WING 01-23 21:13
PROVIDERS: ADMIT Registered Nurse; ATTEND Family Medicine
DX: L03.115 Cellulitis of right lower limb (principal); N17.0 Acute kidney failure with tubular necrosis; E44.0 Moderate protein-calorie malnutrition; D63.1 Anemia in chronic kidney disease; I50.9 Heart failure, unspecified; I13.0 Hypertensive heart and chronic kidney disease with heart failure and stage 1 through stage 4 chronic kidney disease, or unspecified chronic kidney disease; E88.09 Other disorders of plasma-protein metabolism, not elsewhere classified; I69.354 Hemiplegia and hemiparesis following cerebral infarction affecting left non-dominant side; Z20.822 Contact with and (suspected) exposure to COVID-19; E11.22 Type 2 diabetes mellitus with diabetic chronic kidney disease; L03.116 Cellulitis of left lower limb; M10.9 Gout, unspecified; E66.01 Morbid (severe) obesity due to excess calories; I87.8 Other specified disorders of veins; J44.9 Chronic obstructive pulmonary disease, unspecified; F12.90 Cannabis use, unspecified, uncomplicated; M17.12 Unilateral primary osteoarthritis, left knee; N18.4 Chronic kidney disease, stage 4 (severe); Z88.8 Allergy status to other drugs, medicaments and biological substances; Z68.41 Body mass index [BMI] 40.0-44.9, adult; Z72.0 Tobacco use
CPT/HCPCS: 36415; 71046; 73562; 76775; 80048; 80053; 80202; 80307; 80320; 81001; 82306; 82565; 82570; 82962; 83735; 83880; 83935; 83970; 84100; 84156; 84300; 84520; 84550; 85025; 86803; 87040; 87077; 87081; 87186; 87205; 87340; 93005; 96361; 96365; 96375; G0378; J0696; J2405; J3490

== ENCOUNTER 2022-01-28 03:23 | Inpatient (IN) | payer MEDICAID ==
[~2022-01-28] VITALS: Ht 167.6 cm; Wt 131.0 kg
[~2022-01-28 03:23] MED LIST changes: +ALL300T PO; +ATOR20TA PO; +CLIN-203 PO; +HYDR-4902 PO
[2022-01-28] MEDS ORDERED: CLINDAMYCIN 900MG IV 50 ML IV ONE (07:30)
[2022-01-28] MEDS ORDERED: cefTRIAXone 1GM/50ML D5W 50 ML IV ONE (07:30)
[2022-01-28 08:16] LABS: Basophils # (auto) 0.1 10 ^3/uL (0-0.2); Basophils % (auto) 1.2 % (0.0-2.0); Eosinophils # (auto) 0.2 10 ^3/uL (0-0.8); Eosinophils % (auto) 2.1 % (0.0-7.0); Hematocrit 44.5 % (41.0-53.0); Hemoglobin 14.7 g/dL (13.5-17.5); Lymphocytes % (auto) 11.7 % (10.0-50.0); Mean Corpuscular Hemoglobin 32.7 pg (28.0-32.0); Mean Corpuscular Hgb Conc. 33.1 g/dL (32.0-36.0); Mean Corpuscular Volume 98.7 fL (80.0-100.0); Monocytes # (auto) 0.9 10 ^3/uL (0-1.3); Monocytes % (auto) 10.3 % (0.0-12.0); Neutrophils # (auto) 6.3 10 ^3/uL (1.6-8.6); Neutrophils % (auto) 74.7 % (37.0-80.0); Nucleated Red Blood Cells % 0.1 %; Red Blood Cells 4.51 10^6/uL (4.5-5.90); Red Cell Distribution Width 14.4 % (11.8-14.3); White Blood Cell 8.5 10^3/uL (4.4-10.8)
[2022-01-28 08:30] LABS: Albumin 2.4 g/dL (3.4-5.0); Calcium 8.8 mg/dL (8.5-10.1); Potassium 4.2 mmol/L (3.5-5.1)
[2022-01-28 08:33] LABS: Bilirubin, Total 0.9 mg/dL (0.2-1.0); Total Protein 8.7 g/dL (6.4-8.2); Uric Acid 6.5 mg/dL (3.5-7.2)
[2022-01-28] MEDS ORDERED: HYDROcodone-ACET 10/325MG TAB PO ONE (09:15)
[2022-01-28] MEDS ORDERED: NICOTINE 7MG/24HR TOPICAL PATCH TD ONE (11:45)
[2022-01-28] MEDS ORDERED: VANCOMYCIN PER PHARMACY 0 MG IV SCH (11:45)
[2022-01-28] MEDS ORDERED: VANCOMYCIN 1GM/250ML 250 ML IV ONE (12:30)
[2022-01-28 19:17] VITALS: BP 127/74
[2022-01-28 21:40] VITALS: BP 121/70
[2022-01-28] MEDS: HYDROcodone-ACET 10/325MG TAB PO PRN (23:03)
[2022-01-29] MEDS ORDERED: VANCOMYCIN 1GM/250ML 250 ML IV SCH (03:00)
[2022-01-29 04:30] VITALS: BP 124/62
[2022-01-29 05:57] LABS: Basophils # (auto) 0.1 10 ^3/uL (0-0.2); Basophils % (auto) 1.2 % (0.0-2.0); Eosinophils # (auto) 0.5 10 ^3/uL (0-0.8); Eosinophils % (auto) 6.5 % (0.0-7.0); Hematocrit 39.2 % (41.0-53.0); Hemoglobin 12.8 g/dL (13.5-17.5); Lymphocytes # (auto) 1.3 10 ^3/uL (0.4-5.4); Lymphocytes % (auto) 18.2 % (10.0-50.0); Mean Corpuscular Hemoglobin 32.1 pg (28.0-32.0); Mean Corpuscular Hgb Conc. 32.5 g/dL (32.0-36.0); Mean Corpuscular Volume 98.6 fL (80.0-100.0); Monocytes # (auto) 0.8 10 ^3/uL (0-1.3); Monocytes % (auto) 10.9 % (0.0-12.0); Neutrophils # (auto) 4.4 10 ^3/uL (1.6-8.6); Neutrophils % (auto) 63.2 % (37.0-80.0); Nucleated Red Blood Cells % 0.1 %; Red Blood Cells 3.98 10^6/uL (4.5-5.90); Red Cell Distribution Width 14.7 % (11.8-14.3)
[2022-01-29 06:15] LABS: Calcium 8.3 mg/dL (8.5-10.1); Potassium 4.1 mmol/L (3.5-5.1)
[2022-01-29 09:00] VITALS: BP 138/96
[2022-01-29] MEDS: NICOTINE 7MG/24HR TOPICAL PATCH TD SCH (10:00)
[2022-01-29] MEDS: ENOXAPARIN SOD 40 MG/0.4 ML SYRINGE SC SCH (10:03)
[2022-01-29] MEDS: LINEZOLID 600MG/300ML 300 ML IV SCH ×2 (12:36→23:00)
[2022-01-29 13:00] VITALS: BP 117/74
[2022-01-29 16:29] VITALS: BP 143/92
[2022-01-29] MEDS ORDERED: methylPREDNISolone SOD SUCC 40 MG/ML VL IV ONE (19:00)
[2022-01-29 22:00] VITALS: BP 130/74
[2022-01-29] MEDS: HYDROcodone-ACET 10/325MG TAB PO PRN (23:09)
[2022-01-30 05:00] VITALS: BP 118/80
[2022-01-30 09:00] VITALS: BP 143/89
[2022-01-30] MEDS: COLCHICINE 0.6 MG CAP PO SCH ×3 (09:22→22:04)
[2022-01-30] MEDS: ENOXAPARIN SOD 40 MG/0.4 ML SYRINGE SC SCH ×2 (09:22→22:05)
[2022-01-30] MEDS: LINEZOLID 600MG/300ML 300 ML IV SCH ×2 (09:22→22:04)
[2022-01-30] MEDS: NICOTINE 7MG/24HR TOPICAL PATCH TD SCH (09:36)
[2022-01-30 13:00] VITALS: BP 144/91
[2022-01-30] MEDS: DAKINS QUARTER STR 0.125% (NaHypochlorite) 473 ML TOPICAL SOL TOP SCH (14:55)
[2022-01-30 16:35] VITALS: BP 130/85
[2022-01-30 22:00] VITALS: BP 125/81
[2022-01-30] MEDS: HYDROcodone-ACET 10/325MG TAB PO PRN (22:06)
[2022-01-31 05:00] VITALS: BP 117/72
[2022-01-31 09:00] VITALS: BP 121/68
[2022-01-31] MEDS: COLCHICINE 0.6 MG CAP PO SCH ×2 (09:03→21:48)
[2022-01-31] MEDS: LINEZOLID 600MG/300ML 300 ML IV SCH ×2 (09:03→21:48)
[2022-01-31] MEDS: NICOTINE 7MG/24HR TOPICAL PATCH TD SCH (09:03)
[2022-01-31] MEDS: ENOXAPARIN SOD 40 MG/0.4 ML SYRINGE SC SCH ×2 (09:03→21:49)
[2022-01-31] MEDS: DAKINS QUARTER STR 0.125% (NaHypochlorite) 473 ML TOPICAL SOL TOP SCH (09:04)
[2022-01-31 13:00] VITALS: BP 116/66
[2022-01-31 17:00] VITALS: BP 121/62
[2022-01-31 22:00] VITALS: BP 135/94
[2022-02-01 05:00] VITALS: BP 145/86
[2022-02-01] MEDS: LINEZOLID 600MG/300ML 300 ML IV SCH ×2 (08:35→22:50)
[2022-02-01] MEDS: NICOTINE 7MG/24HR TOPICAL PATCH TD SCH (08:35)
[2022-02-01] MEDS: ENOXAPARIN SOD 40 MG/0.4 ML SYRINGE SC SCH ×2 (08:35→22:45)
[2022-02-01] MEDS: COLCHICINE 0.6 MG CAP PO SCH ×2 (08:35→22:45)
[2022-02-01] MEDS: DAKINS QUARTER STR 0.125% (NaHypochlorite) 473 ML TOPICAL SOL TOP SCH (08:36)
[2022-02-01 09:00] VITALS: BP 123/68
[2022-02-01 13:00] VITALS: BP 134/79
[2022-02-01 17:00] VITALS: BP 131/58
[2022-02-01 22:00] VITALS: BP 150/90
[2022-02-02 04:43] VITALS: BP 144/94
[2022-02-02] MEDS: ENOXAPARIN SOD 40 MG/0.4 ML SYRINGE SC SCH (09:39)
[2022-02-02] MEDS: DAKINS QUARTER STR 0.125% (NaHypochlorite) 473 ML TOPICAL SOL TOP SCH (09:39)
[2022-02-02] MEDS: LINEZOLID 600MG/300ML 300 ML IV SCH (09:39)
[2022-02-02] MEDS: COLCHICINE 0.6 MG CAP PO SCH (09:39)
[2022-02-02] MEDS: NICOTINE 7MG/24HR TOPICAL PATCH TD SCH (09:39)
[2022-02-02 13:00] VITALS: BP 143/90
[2022-02-02 13:25] LABS: Hematocrit 44.5 % (41.0-53.0); Hemoglobin 14.5 g/dL (13.5-17.5)
[2022-02-02 16:02] VITALS: BP 143/90
[2022-02-02 16:02] LABS: Basophils # (auto) 0 10 ^3/uL (0-0.2); Basophils % (auto) 0.2 % (0.0-2.0); Eosinophils # (auto) 0.2 10 ^3/uL (0-0.8); Eosinophils % (auto) 3.6 % (0.0-7.0); Hematocrit 44.4 % (41.0-53.0); Hemoglobin 14.6 g/dL (13.5-17.5); Lymphocytes # (auto) 1.3 10 ^3/uL (0.4-5.4); Lymphocytes % (auto) 27.8 % (10.0-50.0); Mean Corpuscular Volume 97.1 fL (80.0-100.0); Monocytes # (auto) 0.4 10 ^3/uL (0-1.3); Monocytes % (auto) 8.8 % (0.0-12.0); Neutrophils # (auto) 2.8 10 ^3/uL (1.6-8.6); Neutrophils % (auto) 59.6 % (37.0-80.0); Nucleated Red Blood Cells % 0.1 %; Red Blood Cells 4.58 10^6/uL (4.5-5.90); Red Cell Distribution Width 14.7 % (11.8-14.3); White Blood Cell 4.7 10^3/uL (4.4-10.8)
== END 2022-02-02 19:03 | DRG 383 ==
LOC: ER 03:23 → OVERFLOW 11:42 → WEST WING 17:45
PROVIDERS: ADMIT Registered Nurse; ATTEND Family Medicine
DX: L03.116 Cellulitis of left lower limb (principal); D63.1 Anemia in chronic kidney disease; N18.4 Chronic kidney disease, stage 4 (severe); I13.0 Hypertensive heart and chronic kidney disease with heart failure and stage 1 through stage 4 chronic kidney disease, or unspecified chronic kidney disease; I50.9 Heart failure, unspecified; I87.2 Venous insufficiency (chronic) (peripheral); E88.09 Other disorders of plasma-protein metabolism, not elsewhere classified; L03.115 Cellulitis of right lower limb; E66.01 Morbid (severe) obesity due to excess calories; J44.9 Chronic obstructive pulmonary disease, unspecified; Z20.822 Contact with and (suspected) exposure to COVID-19; E79.0 Hyperuricemia without signs of inflammatory arthritis and tophaceous disease; F17.210 Nicotine dependence, cigarettes, uncomplicated; F19.10 Other psychoactive substance abuse, uncomplicated; R74.8 Abnormal levels of other serum enzymes; Z88.1 Allergy status to other antibiotic agents; Z95.0 Presence of cardiac pacemaker; Z83.3 Family history of diabetes mellitus; Z59.00 Homelessness unspecified; Z68.42 Body mass index [BMI] 45.0-49.9, adult; Z86.73 Personal history of transient ischemic attack (TIA), and cerebral infarction without residual deficits
CPT/HCPCS: 36415; 73700; 80048; 80053; 82565; 83880; 84550; 85014; 85018; 85025; 87205; 89051; 96365; 96366; 96367; G0378; J0696; J3490

== ENCOUNTER 2024-05-01 01:41 | Emergency (ER) | payer MEDICAID ==
[~2024-05-01] VITALS: Ht 167.6 cm; Wt 113.4 kg
[~2024-05-01 01:41] MED LIST changes: -ALBUAER3 IN; -ASPI-378 PO; -ATOR10TA52 PO; +BACDST PO; +CEL100T PO; -CLIN-203 PO; +COLC1TAB3 PO; +DOXY-286 PO; +GABA-1250 PO; +IBU600T PO
[2024-05-01 01:55] VITALS: BP 113/95; PULSE 114; RESP 18; O2SAT 96
[2024-05-01] MEDS ORDERED: NITROGLYCERIN 0.4 MG SL TAB SL ONE (02:00)
[2024-05-01] MEDS ORDERED: FAMOTIDINE (10MG/ML) 2ML VL IV ONE (02:00)
[2024-05-01] MEDS ORDERED: ASPirin 81 mg TAB PO ONE (02:00)
[2024-05-01 02:08] LABS: Basophils # (auto) 0.1 10 ^3/uL (0-0.2); Basophils % (auto) 0.4 % (0.0-2.0); Eosinophils # (auto) 0.3 10 ^3/uL (0-0.8); Eosinophils % (auto) 2.1 % (0.0-7.0); Hematocrit 45.3 % (41.0-53.0); Hemoglobin 15.3 g/dL (13.5-17.5); Lymphocytes # (auto) 1.6 10 ^3/uL (0.4-5.4); Lymphocytes % (auto) 11.3 % (10.0-50.0); Mean Corpuscular Hemoglobin 31.4 pg (28.0-32.0); Mean Corpuscular Hgb Conc. 33.8 g/dL (32.0-36.0); Mean Corpuscular Volume 92.9 fL (80.0-100.0); Monocytes # (auto) 1.2 10 ^3/uL (0-1.3); Monocytes % (auto) 8.6 % (0.0-12.0); Neutrophils # (auto) 11.1 10 ^3/uL (1.6-8.6); Neutrophils % (auto) 77.6 % (37.0-80.0); Nucleated Red Blood Cells % 0.1 %; Platelet Count (auto) 336 10^3/uL (140-450); Red Blood Cells 4.88 10^6/uL (4.5-5.90); Red Cell Distribution Width 14.5 % (11.8-14.3); White Blood Cell 14.3 10^3/uL (4.4-10.8)
--- NOTE | 2024-05-01 02:12 | ED.PDOC ---
History of Present Illness HPI Comments 58M presents with sharp 10/10 right sided chest pain that began 30 minutes ago. Patient reports that he was driving when he developed a sudden severe pain and urinated on himself. The pain is not radiating and not worse with movement. He denies ever having a stress test before. Chief Complaint: Chest Pain Time Seen by MD: 01:44 Primary Care Provider: Unknown Reviewed Notes: Nurses Notes Allergies: Coded Allergies: Levofloxacin (Verified Allergy, Mild, ITCHING, 01/23/22) Home Meds Active Scripts Colchicine (Colcrys) 0.6 Mg Tab, 1 TAB PO DAILY for 7 Days, #7 TAB 3 Refills Prov:TERRANCE KWON MD 03/05/23 Ibuprofen Micronized (MOTRIN TABLET) 600 Mg Tb, 600 MG PO TID PRN for 5 Days, #15 TAB *Black box warning-NSAIDS can increase risk of IA & hypertension, GI irritation, ulceration, bleed, perferation. Do not use post cardiac surgery. Use short duration/lowest effective dose. Prov:TERRANCE KWON MD 03/05/23 Sulfamethoxazole W/Trimethopri (Bactrim Ds Tablet) 1 Tab Tb, 1 TAB PO BID, #14 TAB Prov:ANU MCGRAW MD 09/08/22 Doxycycline Hyclate (DOXYCYCLINE HYCLATE) 100 Mg Tab, 1 TAB PO BID, #20 TAB Prov:ANU MCGRAW MD 09/08/22 Gabapentin (Gabapentin) 300 Mg Cap, 1 CAP PO TID, #90 CAP 1 Refill Prov:ANU MCGRAW MD 09/08/22 Celecoxib (CeleBREX CAPSULE) 100 Mg Cp, 1 CAP PO BID, #30 CAP Prov:ANU MCGRAW MD 09/08/22 Hydrocodone-Acetaminophen (Hydrocodone Bitartrate/AC 5-325 mg) 1 Tab Tab, 1 TAB PO Q6HR PRN, #14 TAB Prov:ANU MCGRAW MD 09/08/22 Allopurinol (ZYLOPRIM TABLET) 300 Mg Tb, 1 TAB PO DAILY, #90 TAB 1 Refill Prov:KVNG DOBBINS MD 01/27/22 Atorvastatin Calcium (Lipitor) 20 Mg Tab, 1 TAB PO DAILY, #90 TAB 1 Refill Prov:KVNG DOBBINS MD 01/27/22 Information Source: Patient Mode of Arrival: Ambulatory Past Medical History PAST MEDICAL HISTORY: CHF, CKF, CVA, Gout, HTN Surgical History: Pacemaker Family History Family History: Reviewed,noncontributory to illness, Family hx of HTN Social History Smoker: Cigarettes, Less Than 1 Pack/Day Alcohol: Heavy Drugs: Cocaine, Marijuana, Methamphetamine Lives In: Homeless Physical Exam General Appearance: Mild Distress HEENT: Normal ENT Inspection, Pharynx Normal, TMs Normal Neck: Full Range of Motion, Non-Tender, Normal, Normal Inspection Respiratory: Chest Non-Tender, Lungs Clear, No Accessory Muscle Use, No Respiratory Distress, Normal Breath Sounds Cardiovascular: No Edema, No JVD, No Murmur, No Gallop, Normal Peripheral Pulses, Regular Rate/Rhythm Breast Exam: Deferred Gastrointestinal: No Organomegaly, Non Tender, No Pulsatile Mass, Normal Bowel Sounds, Soft Genitalia: Deferred Pelvic: Deferred Rectal: Deferred Extremities: No calf tenderness, Normal capillary refill, Normal inspection, Normal range of motion, Non-tender, No pedal edema Neurologic: No Motor Deficits Cerebellar Function: NOT DONE Reflexes: NOT DONE Skin: Dry, Normal Color, Warm Lymphatic: No Adenopathy Was a procedure done? Was a procedure done?: No Differential Dx Considerations may include: ACS, Viral Syndrome, electrolyte abnormality X-Ray, Labs, Meds, VS Vital Signs Date Time Temp Pulse Resp B/P (MAP) Pulse Ox O2 Delivery O2 Flow Rate FiO2 05/01/24 01:55 97.0 114 18 113/95 (101) 96 Lab Test 05/01/24 01:52 Range/Units White Blood Count 14.3 H 4.4-10.8 10^3/uL Red Blood Count 4.88 4.5-5.90 10^6/uL Hemoglobin 15.3 13.5-17.5 g/dL Hematocrit 45.3 41.0-53.0 % Mean Corpuscular Volume 92.9 80.0-100.0 fL Mean Corpuscular Hemoglobin 31.4 28.0-32.0 pg Mean Corpuscular Hemoglobin Concent 33.8 32.0-36.0 g/dL Red Cell Distribution Width 14.5 H 11.8-14.3 % Platelet Count 336 140-450 10^3/uL Mean Platelet Volume 7.0 6.9-10.8 fL Neutrophils (%) (Auto) 77.6 37.0-80.0 % Lymphocytes (%) (Auto) 11.3 10.0-50.0 % Monocytes (%) (Auto) 8.6 0.0-12.0 % Eosinophils (%) (Auto) 2.1 0.0-7.0 % Basophils (%) (Auto) 0.4 0.0-2.0 % Neutrophils # (Auto) 11.1 H 1.6-8.6 10 ^3/uL Lymphocytes # (Auto) 1.6 0.4-5.4 10 ^3/uL Monocytes # (Auto) 1.2 0-1.3 10 ^3/uL Eosinophils # (Auto) 0.3 0-0.8 10 ^3/uL Basophils # (Auto) 0.1 0-0.2 10 ^3/uL Nucleated Red Blood Cells 0.1 % Sodium Level 135 L 136-145 mmol/L Potassium Level 4.0 3.5-5.1 mmol/L Chloride Level 101 98-107 mmol/L Carbon Dioxide Level 22 20-31 mmol/L Anion Gap 12 5-15 Blood Urea Nitrogen 49 H 9-23 mg/dL Creatinine 1.96 H 0.700-1.30 mg/dL Glomerular Filtration Rate Calc 39 >90 mL/min BUN/Creatinine Ratio 25.0 H 10.0-20.0 Serum Glucose 134 H 74-106 mg/dL Lactic Acid Level 4.4 *H 0.4-2.0 mmol/L Calcium Level 9.0 8.7-10.4 mg/dL Troponin I High Sensitivity 9 </=54 ng/L B-Type Natriuretic Peptide 36.23 0-100 pg/mL Plasma/Serum Blood Alcohol 88.0 H <10 mg/dL Time of 1ST Reevaluation: 03:30 Reevaluation 1ST: Unchanged Patient Education/Counseling: Diagnosis, Treatment Family Education/Counseling: No Family Present Departure 1 Departure Time of Disposition: 04:20 (Patient with severe chest pain, was intoxicated, and eloped. ) Impression: Primary Impression: Acute chest pain Additional Impression: Alcohol intoxication Qualified Codes: F10.920 - Alcohol use, unspecified with intoxication, uncomplicated Disposition: 07 LEFT AWOL/ELOPED Condition: Serious Critical Care Note Critical Care Time?: No Stability Stability form required: No Heart Score Heart Score: Heart Score Response (Comments) Value History Moderate Suspicious 1 EKG Repolarization Disturb 1 Age 45-64 1 Risk Factors 1 or 2 risk factors 1 Troponin 1-2 x's Normal limit 1 Total 5 STEVEN POTTS MD May 01, 2024 02:12
[2024-05-01 02:16] LABS: Chloride 101 mmol/L (98-107); Sodium 135 mmol/L (136-145)
[2024-05-01 02:17] LABS: Anion Gap 12 (5-15); Carbon Dioxide 22 mmol/L (20-31)
[2024-05-01 02:22] LABS: Blood Urea Nitrogen 49 mg/dL (9-23); Glucose 134 mg/dL (74-106)
[2024-05-01 02:26] LABS: Lactic Acid w/Reflex 4.4 mmol/L (0.4-2.0)
--- NOTE | 2024-05-01 06:33 | ECG ---
[facility] Test Date: 2024-05-01 Test Time: 01:46:01 Pat Name: JOAQUIN ERICKSON Department: ED Room: Gender: M [place] A[place]: : 1965 Requested By: STEVEN POTTS Order Number: [id number] Reading MD: Madi Dela Cruz Measurements Intervals Rock Rate: 115 P: 79 CT: 123 QRS: -26 QRSD: 133 T: 75 QT: 328 QTc: 454 Interpretive Statements Sinus tachycardia Paired ventricular premature complexes Aberrant conduction of SV complex(es) Right bundle branch block Baseline wander in lead(s) V2 Electronically Signed On 05-02-2024 16:17:13 PST by Madi Dela Cruz Please click the below link to view image of tracing.
== END 2024-05-01 03:00 | disposition left against medical advice (07) ==
LOC: ER 01:41
DX: R07.89 Other chest pain (principal); F10.129 Alcohol abuse with intoxication, unspecified; I11.0 Hypertensive heart disease with heart failure; I50.9 Heart failure, unspecified; F17.210 Nicotine dependence, cigarettes, uncomplicated; M10.9 Gout, unspecified; Z79.899 Other long term (current) drug therapy; Z95.0 Presence of cardiac pacemaker; Z88.1 Allergy status to other antibiotic agents
CPT/HCPCS: 36415; 80048; 80320; 83605; 83880; 84484; 85025; 93005